=== PATIENT | female | born 1945 | race Caucasian/White ===

== ENCOUNTER 2017-10-27 15:40 | Emergency (ER) | payer OTHER ==
[2017-10-27 16:14] VITALS: BP 128/73; PULSE 66; TEMP 97.8; BMI 29.9
--- NOTE | 2017-10-27 17:22 | PDOC ---
History of Present Illness - General Chief Complaint: Cold Symptoms Stated Complaint: COLD SYMPTOMS Time Seen by Provider: 10/27/17 16:00 History Source: Patient Exam Limitations: No Limitations - History of Present Illness Initial Comments: 10/27/17 17:22 72y F hx of afib on eliquis, back pain s/p spinal stimuator presents with 1 day of nasal congestion, sore throat, mild cough productive of yellowish sputum. pt denies any chest pain, sterling, hemoptysis, leg swelling, palpitations, n/v, abd pain. no recent travel or sick contacts hasnt tried any medications at home for her symptoms Past History - Past Medical History Allergies/Adverse Reactions: Allergies Allergy/AdvReac Type Severity Reaction Status Date / Time dronedarone HCl [From Multaq] Allergy Mild Rash Verified 10/27/17 15:51 cefuroxime Allergy Verified 10/27/17 15:51 dabigatran etexilate mesylate Allergy Verified 10/27/17 15:51 [From Pradaxa] sulfamethoxazole Allergy Verified 10/27/17 15:51 [From Bactrim] trimethoprim [From Bactrim] Allergy Verified 10/27/17 15:51 Home Medications: Ambulatory Orders Aspirin 81 mg PO DAILY 02/05/13 Gabapentin [Neurontin] 300 mg PO HS 02/05/13 Metoprolol Succinate [Toprol XL -] 50 mg PO HS 02/05/13 [place]-3 Acid Ethyl Esters [Lovaza -] 1,000 mg PO DAILY 02/05/13 Ranolazine [Ranexa -] 500 mg PO BID 02/05/13 Olmesartan Medoxomil [Benicar -] 40 mg PO DAILY 09/16/13 Mv,Ca,Iron,Min/FA/Phytosterol [Centrum Cardio Tablet] 1 each PO DAILY 10/09/13 Atorvastatin Calcium 40 mg PO HS tablet 09/15/15 Trazodone HCl 75 mg PO HS tablet 09/15/15 Apixaban [Eliquis -] 5 mg PO ASDIR 07/31/16 Guaifenesin AC [Robitussin AC -] 5 ml PO TID PRN #1 bottle MDD 15ml 10/27/17 Polyethylene Glycol 3350 [Miralax (For Daily Use) -] 17 gm PO HS 10/27/17 Sennosides/Docusate Sodium [Pericolace -] 1 each PO HS 10/27/17 Anemia: No Asthma: No Cancer: No Cardiac Disorders: Yes (afib) CVA: No COPD: No CHF: No Dementia: No Diabetes: No GI Disorders: Yes (CONSTIPATION) Disorders: Yes (OVERACTIVE BLADDER) HTN: Yes Hypercholesterolemia: Yes Liver Disease: No Seizures: No Thyroid Disease: No - Surgical History Abdominal Surgery: No Appendectomy: Yes Cardiac Surgery: Yes (cardiac stent, atrial ablasion) Cholecystectomy: No Lung Surgery: No Neurologic Surgery: No Orthopedic Surgery: Yes (wrist sx - CARPAL TUNNEL) - Suicide/Smoking/Psychosocial Hx Smoking Status: No Smoking History: Never smoked Have you smoked in the past 12 months: No Number of Cigarettes Smoked Daily: 0 Hx Alcohol Use: No Drug/Substance Use Hx: No Substance Use Type: None Hx Substance Use Treatment: No Review of Systems - Review of Systems Able to Perform ROS?: Yes Comments:: 10/27/17 17:23 Constitutional - no reported Fever, Chills, HEENT: +nasal congestion, sore throat no reported vision changes, Respiratory: + cough, no reported sob, hemoptysis Cardiac: no reported chest pain, palpitations, light headedness, leg swelling Abd/GI: no reported abd pain, nausea, vomiting, blood per rectum, melena, diarrhea : no reported dysuria, frequency, discharge Musculskelatal - no reported back pain, joint swelling skin - no reported bruising, erythema, rash neurological: no reported headache, numbness, focal weakness, tingling, ataxia, hematologic: no reported anemia, easy bruising, easy bleeding *Physical Exam - Vital Signs Last Vital Signs Temp Pulse Resp BP Pulse Ox 97.8 F 66 16 128/73 100 10/27/17 15:49 10/27/17 15:49 10/27/17 15:49 10/27/17 15:49 10/27/17 15:49 - Physical Exam Comments: 10/27/17 17:26 GENERAL: The patient is awake, alert, and fully oriented, Nontoxic - in no acute distress. HEAD: Normocephalic, atraumatic. EYES: extraocular movements intact, sclera anicteric, conjunctiva clear. ENT: Normal voice, Moist mucous membranes, +nasal congestion, mild erythemadosu posterior pharynx w/o exudates NECK: Normal range of motion, supple LUNGS: Breath sounds equal, clear to auscultation bilaterally. No wheezes, no rhonchi, no rales. HEART: Regular rate and rhythm, normal S1 and S2 without murmur, rub or gallop. ABDOMEN: Soft, nontender, normoactive bowel sounds. No guarding, no rebound. . No CVA tenderness EXTREMITIES: Normal range of motion, no edema. No clubbing or cyanosis. No cords, erythema, or tenderness. NEUROLOGICAL: No facial assymetry, Normal speech, PSYCH: Normal mood, normal affect. SKIN: Warm, Dry, normal turgor, Medical Decision Making - Medical Decision Making 10/27/17 17:26 Suspect that the patient's symptoms secondary to cold/viral syndrome we'll discharge the patient with PMD fu I discussed the physical exam findings, ancillary test results and final diagnoses with the patient. I answered all of the patient's questions. The patient was satisfied with the care received and felt comfortable with the discharge plan and treatment plan. The patient will call their primary care physician within 24 hours to arrange follow-up and will return to the Emergency Department with any new, persistent or worsening symptoms. *DC/Admit/Observation/Transfer Diagnosis at time of Disposition: Upper respiratory infection Qualifiers: URI type: unspecified viral URI Qualified Code(s): J06.9 - Acute upper respiratory infection, unspecified - Discharge Dispostion Disposition: HOME Condition at time of disposition: Good Admit: No - Referrals Referrals: Aurora Nair MD [Primary Care Provider] - - Patient Instructions Printed Discharge Instructions: DI for Viral Upper Respiratory Infection -- Adult Additional Instructions: Return to the emergency department immediately with ANY new, persistent or worsening symptoms. Drink plenty of fluids to stay well-hydrated. Take Tylenol as needed for your sore throat. You may take the Robitussin as needed for your cough You MUST call and follow up with your doctor tomorrow for further evaluation of your symptoms. Results were discussed with you. Please make sure your doctor reviews the results of your emergency evaluation. - Post Discharge Activity
== END 2017-10-27 17:40 | disposition home or self-care (01) ==
LOC: FER 15:40
DX: J06.9 Acute upper respiratory infection, unspecified (principal); I48.91 Unspecified atrial fibrillation; Z79.01 Long term (current) use of anticoagulants; I10 Essential (primary) hypertension; E78.00 Pure hypercholesterolemia, unspecified; Z95.5 Presence of coronary angioplasty implant and graft
CPT/HCPCS: 99282-25

== ENCOUNTER 2018-12-12 10:11 | Emergency (ER) | payer OTHER ==
[2018-12-12 10:35] VITALS: BP 145/67; PULSE 66; TEMP 97.8; BMI 29.9
--- NOTE | 2018-12-12 10:44 | PDOC ---
History of Present Illness - General Chief Complaint: Headache Stated Complaint: headache Time Seen by Provider: 12/12/18 10:24 - History of Present Illness Initial Comments: 12/12/18 15:34 Chief complaint: Headache History of present illness: Patient described sharp lancinating pain from the base of the neck to the right parietal scalp. Pains are momentary, resolving completely, but recurrent. Began yesterday. No other visual or focal neurologic symptoms. No injury to the neck or head. Review of systems: Denies fever/chills, URI symptoms, sore throat, cough, chest pain, shortness of breath, abdominal pain, nausea, vomiting, diarrhea, visual or focal neurologic symptoms, unsteadiness of gait. Denies vaginal bleeding or discharge. Admits significant dysuria for approximately 24 hours Past medical history: Chronic neck and back pain on gabapentin. Prior A. fib, status post ablation, reportedly successful. High blood pressure. Coronary artery disease. Elevated cholesterol. Restless legs. Anxiety. Recurrent UTIs. GERD. Medications include gabapentin, ranexa, metoprolol, atorvastatin, Eliquis, Protonix, Zantac, and ropinirole Social history: Caring for severely ill with congestive heart failure and mentally handicapped son 44 years old and living at home. Admits stress, anxiety, due to the family. Denies tobacco, alcohol or drugs Family history: Reviewed and not dilatory Physical exam: Alert and oriented well-developed well-nourished no acute distress, cooperative. Afebrile, vital signs normal Head atraumatic. There is no sensory deficit to the scalp. There are no lesions or skin changes. PERRLA, fundi benign, ENT clear Neck supple without bruit mass or nodes Chest clear, full sounds bilaterally Abdomen soft nontender without mass or organomegaly Neurological C2 to 12 intact. Strength full and symmetric. No focal sensory or motor deficits. Cerebellar function intact. 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 Probable aggravation of cervical radiculopathy. Recurrent UTIs with renewed symptoms yesterday Plan: CT to rule out intracranial process. UA C&S. Further treatment depending on results Past History - Past Medical History Allergies/Adverse Reactions: Allergies Allergy/AdvReac Type Severity Reaction Status Date / Time dronedarone HCl [From Multaq] Allergy Mild Rash Verified 12/12/18 10:14 cefuroxime Allergy Verified 12/12/18 10:14 dabigatran etexilate mesylate Allergy Verified 12/12/18 10:14 [From Pradaxa] sulfamethoxazole Allergy Verified 12/12/18 10:14 [From Bactrim] trimethoprim [From Bactrim] Allergy Verified 12/12/18 10:14 Home Medications: Ambulatory Orders Gabapentin [Neurontin] 600 mg PO HS 02/05/13 Metoprolol Succinate [Toprol XL -] 50 mg PO HS 02/05/13 Ranolazine [Ranexa -] 500 mg PO BID 02/05/13 Atorvastatin Calcium 40 mg PO HS tablet 09/15/15 Trazodone HCl 50 mg PO BID tablet 09/15/15 Apixaban [Eliquis -] 5 mg PO BID 07/31/16 Sennosides/Docusate Sodium [Pericolace -] 2 each PO HS 10/27/17 Acetaminophen W/ Codeine #3 [Tylenol # 3] 1 - 2 combo PO Q4H PRN #10 tablet MDD 8 12/12/18 Alpha Lipoic Acid 200 mg PO BID 12/12/18 Bacillus Coagulans [Probiotic] 1 each PO AM 12/12/18 Nitrofurantoin Macrocrystal [Macrodantin] 50 mg PO BID #6 capsule 12/12/18 Pantoprazole Sodium 40 mg PO DAILY 12/12/18 Ranitidine [Zantac -] 150 mg PO BID 12/12/18 Ropinirole HCl [Requip -] 2 mg PO HS 12/12/18 Anemia: No Asthma: No Cancer: No Cardiac Disorders: Yes (afib) CVA: No COPD: No CHF: No Dementia: No Diabetes: No GI Disorders: Yes (CONSTIPATION) Disorders: Yes (OVERACTIVE BLADDER) HTN: Yes Hypercholesterolemia: Yes Liver Disease: No Seizures: No Thyroid Disease: No Other medical history: scoliosis - Surgical History Abdominal Surgery: No Appendectomy: Yes Cardiac Surgery: Yes (cardiac stent, atrial ablasion) Cholecystectomy: No Lung Surgery: No Neurologic Surgery: No Orthopedic Surgery: Yes (wrist sx - CARPAL TUNNEL) - Suicide/Smoking/Psychosocial Hx Smoking Status: No Smoking History: Never smoked Have you smoked in the past 12 months: No Number of Cigarettes Smoked Daily: 0 Hx Alcohol Use: No Drug/Substance Use Hx: No Substance Use Type: None Hx Substance Use Treatment: No *Physical Exam - Vital Signs Last Vital Signs Temp Pulse Resp BP Pulse Ox 97.8 F 66 18 145/67 97 12/12/18 10:14 12/12/18 10:14 12/12/18 10:14 12/12/18 10:14 12/12/18 10:14 ED Treatment Course - ADDITIONAL ORDERS Additional order review: Laboratory Results 12/12/18 10:39 Urine Color Anastacia Urine Appearance Cloudy Urine pH 5.0 Urine Protein Trace Urine Glucose (UA) Negative Urine Ketones 1+ H Urine Blood Trace-intact Urine Nitrite Negative Urine Bilirubin Negative Urine Urobilinogen 0.2 Ur Leukocyte Esterase 1+ Medical Decision Making - Medical Decision Making 12/12/18 15:49 CT is negative. Analgesics prescribed at the request of the patient. Urinalysis with evidence of UTI. Antibiotics prescribed pending culture results. Patient in no significant pain or other distress upon discharge with to follow-up as directed. *DC/Admit/Observation/Transfer Diagnosis at time of Disposition: Cervical spine arthritis with nerve pain Urinary tract infection Qualifiers: Urinary tract infection type: acute cystitis Hematuria presence: without hematuria Qualified Code(s): N30.00 - Acute cystitis without hematuria - Discharge Dispostion Disposition: HOME Condition at time of disposition: Stable Decision to Admit order: No - Prescriptions Prescriptions: Acetaminophen W/ Codeine #3 [Tylenol # 3] 1 - 2 combo PO Q4H PRN #10 tablet MDD 8 PRN Reason: Pain Nitrofurantoin Macrocrystal [Macrodantin] 50 mg PO BID #6 capsule - Referrals Referrals: Aurora Nair MD [Primary Care Provider] - 2 Days Saúl Ocasio DO [Staff Physician] - - Patient Instructions Printed Discharge Instructions: DI for Urinary Tract Infection (UTI), DI for Cervical Radiculopathy - Post Discharge Activity
[2018-12-12 11:26] LABS: EPITHELIAL CELLS 1+ /hpf
== END 2018-12-12 12:46 | disposition home or self-care (01) ==
LOC: FER 10:11
DX: N30.00 Acute cystitis without hematuria (principal); M46.82 Other specified inflammatory spondylopathies, cervical region; M79.2 Neuralgia and neuritis, unspecified
CPT/HCPCS: 70450-TC; 81003; 81015; 87086; 99282-25

== ENCOUNTER 2019-08-25 01:19 | Emergency (ER) | payer OTHER ==
[2019-08-25 01:44] VITALS: TEMP 97.7; BMI 30.9
--- NOTE | 2019-08-25 02:24 | PDOC ---
History of Present Illness - General Chief Complaint: Respiratory Stated Complaint: COUGH,WHEEZING - History of Present Illness Initial Comments: The pt is a 73F w/ a history of a-fib s/p ablation w/ recurrence (eliquis), HTN , HLD, anxiety, GERD who presents for evaluation of 4-5 days of post-nasal drip associated with a cough. She endorses a sick contact of her son and endorses receiving the flu shot this year. She has tried benadryl for her symptoms with minimal relief. She reports similar symptoms in the past that were improved with Atrovent but has not been diagnosed with COPD or asthma. She denies fevers/chills, myalgias, N/V/C/D, dysuria, hematuria, or changes in sensation. 08/25/19 02:24 Past History - Past Medical History Allergies/Adverse Reactions: Allergies Allergy/AdvReac Type Severity Reaction Status Date / Time dronedarone HCl [From Multaq] Allergy Mild Rash Verified 08/25/19 04:53 cefuroxime Allergy Verified 08/25/19 04:53 dabigatran etexilate mesylate Allergy Verified 08/25/19 04:53 [From Pradaxa] sulfamethoxazole Allergy Verified 08/25/19 04:53 [From Bactrim] trimethoprim [From Bactrim] Allergy Verified 08/25/19 04:53 Home Medications: Ambulatory Orders Gabapentin [Neurontin] 600 mg PO HS 02/05/13 Metoprolol Succinate [Toprol XL -] 50 mg PO BID 02/05/13 Ranolazine [Ranexa -] 500 mg PO BID 02/05/13 Atorvastatin Calcium 40 mg PO HS tablet 09/15/15 Trazodone HCl 50 mg PO BID tablet 09/15/15 Apixaban [Eliquis -] 5 mg PO BID 07/31/16 Pantoprazole Sodium 40 mg PO DAILY 12/12/18 Ropinirole HCl [Requip -] 2 mg PO HS 12/12/18 Acetaminophen [Tylenol] 325 mg PO DAILY 08/25/19 Aspirin [Aspirin EC] 81 mg PO DAILY 08/25/19 Gabapentin 100 mg PO DAILY 08/25/19 Guaifenesin [Robitussin] 10 ml PO Q6H PRN #1 bottle 08/25/19 Multivit-Min/FA/Lycopen/Lutein [Centrum Silver Tablet] 1 each PO DAILY 08/25/19 Mv-Min/FA/Vit K/Lycop/Lut/Zeax [Ocuvite Eye + Multi Tablet] 1 each PO DAILY 01/07 Oxybutynin Chloride [Ditropan Xl] 10 mg PO DAILY 08/25/19 Anemia: No Asthma: No Cancer: No Cardiac Disorders: Yes (afib) CVA: No COPD: No CHF: No Dementia: No Diabetes: No GI Disorders: Yes (CONSTIPATION) Disorders: Yes (OVERACTIVE BLADDER) HTN: Yes Hypercholesterolemia: Yes Liver Disease: No Seizures: No Thyroid Disease: No - Surgical History Abdominal Surgery: No Appendectomy: Yes Cardiac Surgery: Yes (cardiac stent, atrial ablasion) Cholecystectomy: No Lung Surgery: No Neurologic Surgery: No Orthopedic Surgery: Yes (wrist sx - CARPAL TUNNEL) - Psycho Social/Smoking Cessation Hx Smoking Status: No Smoking History: Never smoked Have you smoked in the past 12 months: No Number of Cigarettes Smoked Daily: 0 Hx Alcohol Use: No Drug/Substance Use Hx: No Substance Use Type: None Hx Substance Use Treatment: No Review of Systems - Review of Systems Able to Perform ROS?: Yes Comments:: GENERAL/CONSTITUTIONAL: No fever or chills. No weakness HEAD, EYES, EARS, NOSE AND THROAT: No change in vision. No change in hearing CARDIOVASCULAR: No chest pain or shortness of breath RESPIRATORY: Denies hemoptysis GASTROINTESTINAL: No nausea, vomiting, diarrhea or constipation GENITOURINARY: No dysuria, frequency, or change in urination MUSCULOSKELETAL: No joint or muscle swelling or pain. No neck or back pain SKIN: No rash NEUROLOGIC: No headache, vertigo, loss of consciousness, or change in strength/ sensation ENDOCRINE: No increased thirst. No abnormal weight change HEMATOLOGIC/LYMPHATIC: No anemia, easy bleeding, or history of blood clots ALLERGIC/IMMUNOLOGIC: No hives or skin allergy 08/25/19 02:24 Is the patient limited Bel[place]ian proficient: No *Physical Exam - Vital Signs Last Vital Signs Temp Pulse Resp BP Pulse Ox 97.7 F 71 18 153/78 95 08/25/19 01:20 08/25/19 01:20 08/25/19 01:20 08/25/19 01:20 08/25/19 01:20 - Physical Exam GENERAL: Awake, alert, and oriented to person/place/time, in no acute distress HEAD: No signs of trauma, normocephalic, atraumatic EYES: PERRLA, EOMI, sclera anicteric, conjunctiva clear ENT: Hearing grossly normal, nares patent, oropharynx clear without exudates. Moist mucosa LUNGS: No distress, speaks in full sentences, clear to auscultation bilaterally HEART: Regular rate and rhythm, normal S1 and S2, no murmurs appreciated, peripheral pulses normal and equal bilaterally ABDOMEN: Soft, nontender, normoactive bowel sounds. No guarding, no rebound EXTREMITIES: Normal inspection, Normal range of motion, no edema. No clubbing or cyanosis NEUROLOGICAL: Cranial nerves II through XII grossly intact. Normal speech, normal gait, no focal sensorimotor deficits SKIN: Warm, Dry 08/25/19 02:24 Medical Decision Making - Medical Decision Making The pt is a 73F w/ a history of a-fib s/p ablation w/ recurrence (eliquis), HTN , HLD, anxiety, GERD who presents for evaluation of 4-5 days of post-nasal drip associated with a cough. ED Course likely 2/2 bronchitis versus viral syndrome symptoms improved with duoneb and robitussin Rx for alubterol inhaler and robitussin Plan for D/C w/ PCP/Pulm f/u Discharge instructions and return precautions given Patient in agreement and verbalized understanding Dispo: Home 08/25/19 05:43 Discharge - Discharge Information Problems reviewed: Yes Clinical Impression/Diagnosis: Viral syndrome Condition: Stable Disposition: HOME - Admission No - Additional Discharge Information Prescriptions: Guaifenesin [Robitussin] 10 ml PO Q6H PRN #1 bottle PRN Reason: Cough - Follow up/Referral Referrals: Aurora Nair MD [Primary Care Provider] - Daniel Almonte MD [Staff Physician] - - Patient Discharge Instructions Patient Printed Discharge Instructions: DI for Viral Syndrome Additional Instructions: You were seen in the Emergency Department for evaluation of cough. Your symptoms are likely related to a virus and will likely self resolve within a week. Review the handout provided at discharge. Be sure to frequently wash your hands. Avoid close contact with young children, elderly, or weak immune system. Follow up with your primary care doctor within a week. A prescription was sent to your pharmacy for Robitussin, take as directed for cough An inhaler was also provided for symptomatic relief. May use the albuterol inhaler every 4-6 hours as needed for cough and breathing to clear up your airways. Return precautions include respiratory distress, difficulty breathing, cyanosis , chest pain, lethargy, confusion, dehydration, high fevers or pain. - Post Discharge Activity
[2019-08-25] MEDS ORDERED: ALBUTEROL SO4 2.5/IPRATROPIUM 0.5 INH SOL 3 ML VIAL.NEB. NEB ONE ×2 (02:38→02:45)
[2019-08-25] MEDS ORDERED: guaiFENesin 200 MG/10 ML 10 ML UNIT-DOSE CUPS PO ONE (02:38)
[2019-08-25] MEDS ORDERED: guaiFENesin 200 MG/10 ML 10 ML UNIT-DOSE CUPS ONE (02:45)
[2019-08-25 05:14] VITALS: PULSE 68
[2019-08-25] MEDS ORDERED: ALBUTEROL SO4 8 GM HFA INHALER IH PRN (05:41)
[2019-08-25 06:46] VITALS: BP 152/78
--- NOTE | 2019-08-25 17:00 | EKG ---
Test Reason : Blood Pressure : / mmHG Vent. Rate : 068 BPM Atrial Rate : 068 BPM P-R Int : 176 ms QRS Dur : 084 ms QT Int : 418 ms P-R-T Axes : 045 042 042 degrees QTc Int : 444 ms NORMAL SINUS RHYTHM NORMAL ECG WHEN COMPARED WITH ECG OF 04-JUN-2012 08:31, T WAVE VARIATION Confirmed by ABELARDO HUERTAS MD ([id number]) on 08/25/2019 5:00:22 PM Referred By: Confirmed By:ABELARDO HUERTAS MD
== END 2019-08-25 06:10 | disposition home or self-care (01) ==
LOC: JER 01:19
PROC: 3E0F7GC Introduction of Other Therapeutic Substance into Respiratory Tract, Via Natural or Artificial Opening (ICD-10-PCS; principal; 2019-08-25)
DX: B34.9 Viral infection, unspecified (principal); I25.10 Atherosclerotic heart disease of native coronary artery without angina pectoris; I10 Essential (primary) hypertension; Z95.5 Presence of coronary angioplasty implant and graft; I48.91 Unspecified atrial fibrillation; Z79.01 Long term (current) use of anticoagulants; E78.5 Hyperlipidemia, unspecified; K21.9 Gastro-esophageal reflux disease without esophagitis; F41.9 Anxiety disorder, unspecified; Z79.82 Long term (current) use of aspirin; Z88.2 Allergy status to sulfonamides; Z88.8 Allergy status to other drugs, medicaments and biological substances
CPT/HCPCS: 71046-TC-FY; 93005; 93010; 94640; 99283-25

== ENCOUNTER 2020-04-30 07:18 | Inpatient (IN) | payer OTHER ==
--- NOTE | 2020-04-30 07:35 | PDOC ---
History of Present Illness - General Chief Complaint: Shortness of Breath Stated Complaint: SHORT OF BREATH Time Seen by Provider: 04/30/20 07:30 History Source: Patient Exam Limitations: No Limitations - History of Present Illness Initial Comments: 04/30/20 07:30 74 yo F h/o htn afib, cad ( stent) on eliquis and asa here with c/o exertional sob x 4 days. worse wtih any small walking. pt does have mild leg swelling. no h/o fever or cough. explains irregular feeling in her chest , palpitations, no pain. has appointment with dr Mccallum her emergency department coordinator in 5 days , but here be cause sxs were getting worse. does not smoke, h/o tobacco use . no other complaints Past History - Medical History Allergies/Adverse Reactions: Allergies Allergy/AdvReac Type Severity Reaction Status Date / Time dronedarone HCl [From Multaq] Allergy Mild Rash Verified 08/25/19 04:53 cefuroxime Allergy Verified 08/25/19 04:53 dabigatran etexilate mesylate Allergy Verified 04/30/20 07:22 [From Pradaxa] sulfamethoxazole Allergy Verified 08/25/19 04:53 [From Bactrim] trimethoprim [From Bactrim] Allergy Verified 08/25/19 04:53 Home Medications: Ambulatory Orders Acetaminophen [Tylenol -] 1,000 mg PO AM 04/30/20 Apixaban [Eliquis -] 5 mg PO BID 04/30/20 Aspirin [ASA -] 1 tab PO DAILY 04/30/20 Azilsartan Medoxomil [Edarbi] 1 tab PO AM 04/30/20 Cranberry 4,200 mg PO AM 04/30/20 Difluprednate [Durezol] 5 ml OS BID 04/30/20 Ezetimibe/Simvastatin [Ezetimibe-Simvastatin 10-80 mg] 1 each PO DAILY 04/30/20 Gabapentin 600 mg PO HS 04/30/20 Metoprolol Succinate 50 mg PO BID 04/30/20 Multivit-Min/FA/Lycopen/Lutein [Centrum Silver Tablet] 1 each PO DAILY 04/30/20 [place]-3 Acid Ethyl Esters [Lovaza -] 2,000 mg PO DAILY 04/30/20 Oxybutynin Chloride [Ditropan Xl] 10 mg PO DAILY 04/30/20 Ranolazine [Ranexa] 500 mg PO BID 04/30/20 Ropinirole HCl [Ropinirole ER] 2 mg PO HS 04/30/20 Sennosides/Docusate Sodium [Pericolace -] 2 each PO HS 04/30/20 Vit C/Vit E AC/Lut/Copper/Zinc [Preservision Softgel] 1 each PO 04/30/20 Vit C/Vit E AC/Lut/Copper/Zinc [Preservision Softgel] 1 each PO DAILY 04/30/20 traZODone HCL [Trazodone HCl] 50 mg PO HS 04/30/20 Anemia: No Asthma: No Cancer: No Cardiac Disorders: Yes (afib) CVA: No COPD: No CHF: No Dementia: No Diabetes: No GI Disorders: Yes (CONSTIPATION) Disorders: Yes (OVERACTIVE BLADDER) HTN: Yes Hypercholesterolemia: Yes Liver Disease: No Seizures: No Thyroid Disease: No - Surgical History Abdominal Surgery: No Appendectomy: Yes Cardiac Surgery: Yes (cardiac stent, atrial ablasion) Cholecystectomy: No Lung Surgery: No Neurologic Surgery: No Orthopedic Surgery: Yes (wrist sx - CARPAL TUNNEL) - Psycho-Social/Smoking History Smoking Status: No Smoking History: Never smoked Have you smoked in the past 12 months: No Number of Cigarettes Smoked Daily: 0 Review of Systems - Review of Systems Constitutional: No: Chills, Fever HEENTM: No: Eye Pain, Blurred Vision Respiratory: Yes: Shortness of Breath, SOB with Exertion. No: Cough, SOB at Rest Cardiac (ROS): Yes: Palpitations. No: Chest Pain ABD/GI: No: Diarrhea, Nausea, Vomiting : No: Burning, Dysuria, Discharge Musculoskeletal: No: Back Pain, Joint Pain Integumentary: No: Bruising Neurological: No: Headache, Paresthesia All Other Systems: Reviewed and Negative *Physical Exam - Physical Exam 04/30/20 07:34 awake alert lung clear bilat heart rrr no mrg abd soft nt nd ext wwp. mild pitting edema. 2+ dp/ pt pulses bilat. alert oriented x 3. ED Treatment Course - LABORATORY CBC & Chemistry Diagram: 04/30/20 08:26 04/30/20 08:47 Medical Decision Making - Medical Decision Making 04/30/20 07:34 74 yo F h/o htn afib cad here wiht sob, palpitations and chest discomfort intermittently. differential rvr from afib, chf, infection such as pna, angina. pln cxr ekg trop bnp labs. Discharge - Discharge Information Problems reviewed: Yes Clinical Impression/Diagnosis: Atrial fibrillation, Shortness of breath, Chest pain Condition: Stable - Admission Yes - Follow up/Referral - Patient Discharge Instructions - Post Discharge Activity
[2020-04-30 08:30] LABS: BASO % 0.5 % (0-2.0); EOS % 1.7 % (0-4.5); HEMATOCRIT 39.2 % (32.4-45.2); HEMOGLOBIN 12.7 GM/dl (10.7-15.3); LYMPH % 24.8 % (8-40); MCH 28.7 pg (25.7-33.7); MCHC 32.4 g/dl (32.0-36.0); MEAN CELL VOLUME 88.6 fl (80-96); MEAN PLT VOLUME 7.8 fl (7.5-11.1); MONO % 9.6 % (3.8-10.2); NEUT % 63.4 % (42.8-82.8); PLATELET COUNT 202 K/MM3 (134-434); RBC 4.42 M/mm3 (3.60-5.2); RDW 14.1 % (11.6-15.6); WHITE BLOOD COUNT 7.3 K/mm3 (4.0-10.8)
[2020-04-30 08:49] LABS: INR 1.53 (0.82-1.09)
[2020-04-30 08:51] LABS: ALBUMIN 3.6 g/dl (3.4-5.0); BILIRUBIN,TOTAL 0.6 mg/dl (0.2-1); CALCIUM 8.9 mg/dl (8.5-10); CREATININE 0.8 mg/dl (0.55-1.3); POTASSIUM 3.9 mmol/L (3.5-5.1)
[2020-04-30 09:38] LABS: N-TERMINAL BNP 2028.8 pg/ml (5-450)
[2020-04-30] MEDS ORDERED: ATORVASTATIN CA 40 MG TABLET (FP) PO STA (09:44)
[2020-04-30] MEDS ORDERED: PATIENT'S OWN MEDICATION (NON-FORMULARY) (Difluprednate [Durezol] 5 ML) OS SCH (10:00)
[2020-04-30 10:26] LABS: EPITHELIAL CELLS MODERATE /hpf
--- NOTE | 2020-04-30 11:06 | HP ---
Admitting History and Physical - Primary Care Physician PCP: Rosanna Overton - Admission Chief Complaint: Dyspnea on exertion, History of Present Illness: 74 year old F with h/o coronary artery disease status post percutaneous coronary intervention stenting (ARLEN LAD patent on coronary angiography April 18, 2011) negative pharmacologic study for myocardial ischemia Aug 2019, angina pectoris, diastolic left ventricular dysfunction with class 0 [place] [employer] classification left ventricular failure (LVEF between 65-70%), paroxysmal atrial fibrillation status post cryo balloon catheter ablation June 20, 2012 on chronic anticoagulation therapy with DOACsEliquis [id number] score of 4HASBLED score of 2 recurrent asymptomatic arrhythmia August 01, 2019, HTN with labile blood pressure, hypercholesterolemia, hypertriglyceridemia presents to ED for evaluation of GON[place]VES and chest discomfort x 4- 5 dys. Patient reports increased overall stress due to 's ill health. She has poor sleep at nights and always feels fatigued. Over the last month she has noted a dry cough worse at night, mid-sternal chest discomfort, palpitations and decreased exercise tolerance. She must now limited by dyspnea to 1 block and has trouble completing her tasks around the house. Patient currently undergoing GI evaluation for chronic cough (had planned GI series today 04/30 and C-scope next week). She denies associated symptoms of neck/back/arm pain, no jaw pain, dizziness, diaphoresis, or syncope. No recent sick contacts or travel. Last COVID screen Mar 2020 prior to EGD was negative. On the afternoon of 04/29 her symptoms were "worse than usual doing her normal everyday activities", therefore, she decided to proceed to ED for evaluation. In ED: EKG Afib 99bpm Tele: Afib with rates up to 120s CT chest with mild chronic interstitial lung disease Labs WNL Decision made to admit patient for continued workup. History Source: Patient Limitations to Obtaining History: No Limitations - Past Medical History Cardiovascular: Yes: AFIB, CAD, HTN, Hyperlipdemia Gastrointestinal: Yes: GERD Reproductive: Yes: Postmenopausal ...: No ...: 4 ...Para: 2 Psych: Yes: Anxiety, Depression Musculoskeletal: Yes: Chronic low back pain ENT: Yes: Sinusitis Additional Past Medical History: restless leg syndrome Overactive bladder H pylori gastritis, degenerative lumbosacral disc disease with chronic low back pain and radiculopathy (post spinal cord stimulator implantation), anxiety disorder and chronic insomnia - Past Surgical History Additional Past Surgical History: percutaneous angioplasty A-fib ablation right carpal tunnel release sinus surgery D & C x 2 Appendectomy age 40 Vaginoplasty bilateral cataract extraction Left eyelid skin cancer resection spinal cord stimulator implantation - Advance Directives Advance Directives: Yes: Living Will - Smoking History Smoking history: Never smoked Have you smoked in the past 12 months: No Aproximately how many cigarettes per day: 0 - Alcohol/Substance Use Hx Alcohol Use: No History of Substance Use: reports: None - Social History Usual Living Arrangement: Yes: With Spouse, With Child Do you think of yourself as: Straight/Heterosexual ADL: Independent Occupation: Retired JOB [employer]TER [employer] History of Recent Travel: No Other Social History: Synagogue: Spiritism. Exercise: none Home Medications - Allergies Allergies/Adverse Reactions: Allergies Allergy/AdvReac Type Severity Reaction Status Date / Time dronedarone HCl [From Multaq] Allergy Mild Rash Verified 08/25/19 04:53 cefuroxime Allergy Verified 08/25/19 04:53 dabigatran etexilate mesylate Allergy Verified 04/30/20 07:22 [From Pradaxa] sulfamethoxazole Allergy Verified 08/25/19 04:53 [From Bactrim] trimethoprim [From Bactrim] Allergy Verified 08/25/19 04:53 - Home Medications Home Medications: Ambulatory Orders Acetaminophen [Tylenol -] 1,000 mg PO AM 04/30/20 Apixaban [Eliquis -] 5 mg PO BID 04/30/20 Aspirin [ASA -] 1 tab PO DAILY 04/30/20 Azilsartan Medoxomil [Edarbi] 1 tab PO AM 04/30/20 Cranberry 4,200 mg PO AM 04/30/20 Difluprednate [Durezol] 5 ml OS BID 04/30/20 Ezetimibe/Simvastatin [Ezetimibe-Simvastatin 10-80 mg] 1 each PO DAILY 04/30/20 Gabapentin 600 mg PO HS 04/30/20 Metoprolol Succinate 50 mg PO BID 04/30/20 Multivit-Min/FA/Lycopen/Lutein [Centrum Silver Tablet] 1 each PO DAILY 04/30/20 [place]-3 Acid Ethyl Esters [Lovaza -] 2,000 mg PO DAILY 04/30/20 Oxybutynin Chloride [Ditropan Xl] 10 mg PO DAILY 04/30/20 Ranolazine [Ranexa] 500 mg PO BID 04/30/20 Ropinirole HCl [Ropinirole ER] 2 mg PO HS 04/30/20 Sennosides/Docusate Sodium [Pericolace -] 2 each PO HS 04/30/20 Vit C/Vit E AC/Lut/Copper/Zinc [Preservision Softgel] 1 each PO 04/30/20 Vit C/Vit E AC/Lut/Copper/Zinc [Preservision Softgel] 1 each PO DAILY 04/30/20 traZODone HCL [Trazodone HCl] 50 mg PO HS 04/30/20 Family Medical History Family History: As Documented Other Family History: Mother (78) CAD, DMII. Father (68) RHD, during aortic repair surgery. daughter alive (49) h/o breast cancer. Son alive (45) OCD. Sister alive (71) HLD, DMII, bipolar. Sister alive (65) ? Sister alive (66) Well. Brother alive (67) well. Brother alive (76) osteoarthr itis Review of Systems Unable to obtain ROS, reason: see below - Review of Systems Constitutional: reports: Weakness Eyes: reports: No Symptoms HENT: reports: No Symptoms Neck: reports: No Symptoms Cardiovascular: reports: Chest Pain, Palpitations, Shortness of Breath Respiratory: reports: Cough, SOB on Exertion Gastrointestinal: reports: No Symptoms Genitourinary: reports: No Symptoms Breasts: reports: No Symptoms Reported Musculoskeletal: reports: Back Pain Integumentary: reports: No Symptoms Neurological: reports: No Symptoms Endocrine: reports: No Symptoms Hematology/Lymphatic: reports: No Symptoms Psychiatric: reports: Altered Sleep Pattern, Anxiety, Depression Physical Examination Vital Signs: Vital Signs Temperature 98.3 F 04/30/20 07:22 Pulse Rate 108 H 04/30/20 10:15 Respiratory Rate 18 04/30/20 10:15 Blood Pressure 137/89 04/30/20 07:22 O2 Sat by Pulse Oximetry (%) 100 04/30/20 10:15 Constitutional: Yes: Well Nourished, No Distress, Calm Eyes: Yes: Conjunctiva Clear, PERRL HENT: Yes: Atraumatic, Normocephalic Neck: Yes: Supple, Trachea Midline Cardiovascular: Yes: Tachycardia, Pulse Irregular Respiratory: Yes: Regular, CTA Bilaterally Gastrointestinal: Yes: Normal Bowel Sounds, Soft, Abdomen, Obese ...Rectal Exam: Yes: Deferred Musculoskeletal: Yes: Back Pain Extremities: Yes: WNL Edema: No Integumentary: Yes: WNL Neurological: Yes: Alert, Oriented ...Motor Strength: WNL Psychiatric: Yes: Alert, Oriented Labs: CBC, BMP 04/30/20 08:26 04/30/20 08:47 Imaging - Results Chest X-ray: Report Reviewed (CXR 04/30/2020 2 views of the chest to been submitt ed. There is a weak inspiration with spinal stimulator wiring, prominent heart, sclerotic knob and prominent [place]. There are some atelectatic changes at the right base and left base. There is abdominal distention but no sign of infiltrate or failure. Pneumothorax is not seen. The soft tissues are intact. There is a scoliosis with some arthritic changes. Correlation recommended. Impression: Weak inspiration. Spinal stimulator wiring. Minimal basilar atelectatic changes.) Cat Scan: Report Reviewed (CT chest 04/30/20 (without contrast) Examination of the mediastinum demonstrates no evidence of mediastinal masses, fluid collections or lymphadenopathy. The heart is not enlarged. There is a trace amount of pericardial fluid. There is also extensive coronary artery calc ification. The lung rose are free of pulmonary masses, areas of acute consolidation or pleural effusions. There are slightly increased interstitial markings diffusely indicative of a mild degree of chronic lung disease. Minimal platelike atelectasis is also noted at the right lung base. Limited evaluation of the upper abdomen demonstrates no acute abnormalities. There is no evidence of acute bony pathology. There is a neuro stimulating device within the thoracic spinal canal. IMPRESSION: Mild chronic interstitial lung disease with no evidence of acute pathology within the chest. Please see above discussion. Reported By: Erick Cardenas MD 04/30/20 0958) Other: Other (Echocardiography performed September 29, 2017 revealed normal left ventricular systolic function with estimated left ventricular ejection fraction between 6570%, mild degree of concentric left ventricular hypertrophy, Doppler evidence of left ventricular diastolic dysfunctionimpaired left ventricular relaxation, normal right ventricular size and systolic function, aortic valve sclerosis with no evidence of leaflet restriction, mild mitral valve regurgitation, mild to moderate tricuspid valve regurgitation with calculated RVSP of 31 mmHg. Pharmacologic Lexiscan myocardial perfusion imaging study performed August 01, 2017 revealed no evidence of myocardial ischemia with normal left ventricular contraction pattern on LV gated analysis with calculated left ventricular ejection fraction of 70%. Echocardiography performed December 11, 2015 revealed overall preserved left ventricular systolic function, mitral annular calcification, aortic valve leaflet sclerosis, left atrial dilatation measuring 4.0 cm, mild mitral and tricuspid valve regurgitation with calculated RVSP of 40 mmHg (mild degree of pulmonary hypertension). Pharmacologic Dipyridamole myocardial perfusion imaging study performed November 25, 2015 revealed small size apical wall defect compatible with apical thinningattenuation with normal left ventricular contraction pattern on LV gated analysis with calculated left ventricular ejection fraction of 77%. Carotid Doppler study performed May 29, 2014 revealed mild atherosclerotic plaque bilaterally with no evidence of hemodynamically significant stenosis.) Problem List - Problems (1) CAD in [place] artery Assessment/Plan: continue statin and aspirin ranexa BID cardiac diet Code(s): I25.10 - ATHSCL HEART DISEASE OF [place] CORONARY ARTERY W/O ANG PCTRS (2) Atrial fibrillation Assessment/Plan: continuous telemetry continue eliquis BID cardiology consulted- recs appreciated toprol XL BID changed to sotalol as per Cardiology Chest discomfort and dyspnea may be due to high Afib burden with poor rate control, Code(s): I48.91 - UNSPECIFIED ATRIAL FIBRILLATION Qualifiers: Atrial fibrillation type: longstanding persistent Qualified Code(s): I48.11 - Longstanding persistent atrial fibrillation (3) Chest pain Assessment/Plan: serial cardiac enzymes daily EKGs Code(s): R07.9 - CHEST PAIN, UNSPECIFIED Qualifiers: Ischemic chest pain type: stable angina pectoris (4) Shortness of breath Assessment/Plan: PRN oxygen for moderate to severe dyspnea incentive spirometry Code(s): R06.02 - SHORTNESS OF BREATH (5) Degenerative lumbar spinal stenosis Assessment/Plan: PRN APAP Neurontin 600mg qhs Ambulate as tolerated OOB to chair Code(s): M48.061 - SPINAL STENOSIS, LUMBAR REGION WITHOUT NEUROGENIC NIKOLAI (6) Constipation Assessment/Plan: pericolace daily Code(s): K59.00 - CONSTIPATION, UNSPECIFIED (7) Overactive bladder Assessment/Plan: vesicare 5mg daily Code(s): N32.81 - OVERACTIVE BLADDER (8) Depression Assessment/Plan: trazodone 50mg qhs Code(s): F32.9 - MAJOR DEPRESSIVE DISORDER, SINGLE EPISODE, UNSPECIFIED (9) Prophylactic measure Assessment/Plan: CORBY hernandez SCDs Fall precautions daily MVIs Code(s): Z29.9 - ENCOUNTER FOR PROPHYLACTIC MEASURES, UNSPECIFIED (10) Hyperlipidemia Assessment/Plan: continue Zetia 10mg qhs change simvastatin to lipitor while inpt, due to non-formulary medication Code(s): E78.5 - HYPERLIPIDEMIA, UNSPECIFIED (11) Hypertension Assessment/Plan: change Azilsartan to losartan while inpt, due to non-formulary status Code(s): I10 - ESSENTIAL (PRIMARY) HYPERTENSION Assessment/Plan Code status:DNI Pt may be discharged in the morning, after sotalol successfully initiated with close QTc monitoring. Maintain isolation precautions while COVID screen pending. Visit type - Medication Review Med list reviewed for High Risk Meds patients 65 and older: Yes - Emergency Visit Emergency Visit: Yes ED Registration Date: 04/30/20 Care time: The patient presented to the Emergency Department on the above date and was hospitalized for further evaluation of their emergent condition. - New Patient This patient is new to me today: Yes Date on this admission: 04/30/20 - Critical Care Critical Care patient: No
--- NOTE | 2020-04-30 11:34 | CON.CARD ---
Consult Consult Specialty:: Cardiology Referred by:: Dr. Overton Reason for Consultation:: History of coronary artery disease post percutaneous intervention stenting angina pectoris, diastolic left ventricular dysfunction, recurrent paroxysmal atrial fibrillation post cryo- balloon catheter ablation on chronic anticoagulation therapy/DOAC's- Eliquis, hypertensive cardiovascular disease/labile blood pressure and hypercholesterolemia/hypertriglyceridemia. 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 history of [place] artery disease status post percutaneous coronary intervention stenting (ARLEN- LAD patent on coronary angiography April 18, 2011) negative pharmacologic Lexiscan myocardial perfusion imaging study for myocardial ischemia/August 01, 2017/September 04, 2019angina pectoris, diastolic left ventricular dysfunction with class 0 [place] [employer] classification left ventricular failure (LVEF between 55-60% on echocardiography performedJan2019), paroxysmal atrial fibrillation status post cryo -balloon catheter ablation/June 20, 2012 on chronic anticoagulation therapy with DOACs/Eliquis [id number] score of 4/HAS-BLED score of 2 recurrent asymptomatic arrhythmia August 01, 2019- post spontaneous conversion/EKG dated August 08, 2019, mitral valve regurgitation mild in severity of no clinical significance on echocardiography performed December 11, 2015/September 29, 2017/August 22, 2019, tricuspid valve regurgitation mild to moderate in severity with RVSP of 40 mmHg on echocardiography performed December 11, 2015/RVSP of 31 mmHg on echocardiography performed September 29, 2017/RVSP of 30 mmHg on echocardiography performed August 22, 2019, hypertensive cardiovascular disease/labile blood pressure, hypercholesterolemia/hypertriglyceridemia, carotid atherosclerosis mild in severity on carotid Doppler study performed May 29, 2014, gastroesophageal reflux disease/tracheolaryngeal reflux disease, H- pylori gastritis, degenerative lumbosacral disc disease with chronic low back pain and radiculopathy (post spinal cord stimulator implantation), restless leg syndrome, anxiety disorder and chronic insomnia who was last evaluated in the officeJun2019. Since the above evaluation, patient presents to [facility] with exertional sob, palpitations, chest tightness without orthopnea or paroxysmal nocturnal dyspnea, near or true syncope. Patient continues to reportpersistence ofintermittent bilateral lower extremity edema that worsens in the latter part of the day, severity of which has not increased. Patient continues to report persistence of low back discomfort with radiation to the lower extremities limiting her ambulation/exercise ability- above is related to her degenerative lumbosacral disc disease with lumbar radiculopathy. - History Source History Provided By: Patient Limitations to Obtaining History: No Limitations - Past Medical History Cardio/Vascular: Yes: AFIB, CAD, HTN - Alcohol/Substance Use Hx Alcohol Use: No - Smoking History Smoking history: Never smoked Have you smoked in the past 12 months: No Aproximately how many cigarettes per day: 0 Home Medications - Allergies Allergies/Adverse Reactions: Allergies Allergy/AdvReac Type Severity Reaction Status Date / Time dronedarone HCl [From Multaq] Allergy Mild Rash Verified 08/25/19 04:53 cefuroxime Allergy Verified 08/25/19 04:53 dabigatran etexilate mesylate Allergy Verified 04/30/20 07:22 [From Pradaxa] sulfamethoxazole Allergy Verified 08/25/19 04:53 [From Bactrim] trimethoprim [From Bactrim] Allergy Verified 08/25/19 04:53 - Home Medications Home Medications: Ambulatory Orders Acetaminophen [Tylenol -] 1,000 mg PO AM 04/30/20 Apixaban [Eliquis -] 5 mg PO BID 04/30/20 Aspirin [ASA -] 1 tab PO DAILY 04/30/20 Azilsartan Medoxomil [Edarbi] 1 tab PO AM 04/30/20 Cranberry 4,200 mg PO AM 04/30/20 Difluprednate [Durezol] 5 ml OS BID 04/30/20 Ezetimibe/Simvastatin [Ezetimibe-Simvastatin 10-80 mg] 1 each PO DAILY 04/30/20 Gabapentin 600 mg PO HS 04/30/20 Metoprolol Succinate 50 mg PO BID 04/30/20 Multivit-Min/FA/Lycopen/Lutein [Centrum Silver Tablet] 1 each PO DAILY 04/30/20 [place]-3 Acid Ethyl Esters [Lovaza -] 2,000 mg PO DAILY 04/30/20 Oxybutynin Chloride [Ditropan Xl] 10 mg PO DAILY 04/30/20 Ranolazine [Ranexa] 500 mg PO BID 04/30/20 Ropinirole HCl [Ropinirole ER] 2 mg PO HS 04/30/20 Sennosides/Docusate Sodium [Pericolace -] 2 each PO HS 04/30/20 Vit C/Vit E AC/Lut/Copper/Zinc [Preservision Softgel] 1 each PO 04/30/20 Vit C/Vit E AC/Lut/Copper/Zinc [Preservision Softgel] 1 each PO DAILY 04/30/20 traZODone HCL [Trazodone HCl] 50 mg PO HS 04/30/20 Review of Systems - Review of Systems Cardiovascular: reports: Palpitations, Shortness of Breath Respiratory: reports: Exercise Intolerance, SOB on Exertion Musculoskeletal: reports: Back Pain Vital Signs: Vital Signs Temperature 98.3 F 04/30/20 07:22 Pulse Rate 108 H 04/30/20 10:15 Respiratory Rate 18 04/30/20 10:15 Blood Pressure 137/89 04/30/20 07:22 O2 Sat by Pulse Oximetry (%) 100 04/30/20 10:15 Constitutional: Yes: No Distress, Calm Neck: Yes: Supple Respiratory: Yes: Regular, CTA Bilaterally Gastrointestinal: Yes: Normal Bowel Sounds, Soft Cardiovascular: Yes: Tachycardia, Pulse Irregular JVD: No Carotid Bruit: No Heart Sounds: Yes: S1, S2 Murmur: Yes: Systolic Murmur, Grade 1 Edema: No - Other Data Labs, Other Data: CBC, BMP 04/30/20 08:26 04/30/20 08:47 INR, PTT INR 1.53 (0.82-1.09) H 04/30/20 07:51 Troponin, BNP 04/30/20 04/30/20 07:51 08:47 Troponin I < 0.03 B-Natriuretic Peptide 8.8 H Troponin, BNP 04/30/20 04/30/20 07:51 08:47 Troponin I < 0.03 B-Natriuretic Peptide 2028.8 H Afib @ 99 c/w previous 02/06/2020 back in afib Echo: Report Reviewed Ejection Fraction %: LVEF > or = 40 % Imaging - Results Chest X-ray: Report Reviewed Cat Scan: Report Reviewed Problem List - Problems (1) Atrial fibrillation Code(s): I48.91 - UNSPECIFIED ATRIAL FIBRILLATION Qualifiers: Atrial fibrillation type: paroxysmal Qualified Code(s): I48.0 - Paroxysmal atrial fibrillation (2) CAD in [place] artery Code(s): I25.10 - ATHSCL HEART DISEASE OF [place] CORONARY ARTERY W/O ANG PCTRS (3) Chest pain Code(s): R07.9 - CHEST PAIN, UNSPECIFIED Qualifiers: Ischemic chest pain type: stable angina pectoris (4) Hyperlipidemia Code(s): E78.5 - HYPERLIPIDEMIA, UNSPECIFIED Qualifiers: Hyperlipidemia type: mixed hyperlipidemia Qualified Code(s): E78.2 - Mixed hyperlipidemia (5) Hypertension Code(s): I10 - ESSENTIAL (PRIMARY) HYPERTENSION Qualifiers: Hypertension type: essential hypertension Qualified Code(s): I10 - Essential (primary) hypertension (6) Shortness of breath Code(s): R06.02 - SHORTNESS OF BREATH Assessment/Plan 04/30/[address]: Mild chronic interstitial lung disease Echocardiography performed August 22, 2019 revealed normal left ventricular size and systolic function with estimated LVEF between 55-60%, mild left atrial dilatation, normal right ventricle size and systolic function, mild mitral valve regurgitation, mild to moderate tricuspid valve regurgitation with calculated RVSP of 30 mmHg. Pharmacologic Lexiscan myocardial perfusion imaging study performed September 04, 2019 revealed small size anteroapical wall defect compatible with soft tissue attenuation/normal variant with normal left ventricular contraction pattern on LV gated analysis with calculated left ventricular ejection fraction of 66% at rest and 65% post Lexiscan infusion. 08/01/2017 Lexiscan Myoview: No ischemia, normal LVEF Assessment: 1. Coronary artery disease of [place] artery of [place] heart with stable angina pectoris 2. Status post insertion of drug eluting coronary artery stent 3. Angina pectoris 4. Dyspnea on exertion 5. Diastolic dysfunction, left ventricle 6. Paroxysmal atrial fibrillation w 7. Hypertensive heart disease without heart failure 8. Labile blood pressure 9. Hypercholesterolemia 10. Hypertriglyceridemia 11. Exogenous obesity 1.Persistent exertional dyspnea in a patient with known history of coronary artery disease status post percutaneous coronary intervention stenting negative pharmacologic Lexiscan myocardial perfusion imaging study for myocardial ischemia/August 01, 2017- September 04, 2019angina pectoris. 2. Diastolic left ventricular dysfunction with class 0 [place] [employer] classification left ventricular failure. 3. Paroxysmal atrial fibrillation post cryo- balloon catheter ablation on chronic anticoagulation therapy with DOAC's/Eliquis [id number] score of 4/HAS- BLED score of 2(with recurrent symptomatic arrhythmia) 4.Mitral valve regurgitation mild in severity (of no clinical significance). 5. Tricuspid valve regurgitation mild to moderate in severity with RVSP of 40 mmHg on echocardiography performed December 11, 2015/RVSP of 31 mmHg on echocardiography performed September 29, 2017/RVSP of 30 mmHg on echocardiography performed August 22, 2019. 6. Hypertensive cardiovascular disease, labile blood pressure near/at goal- reported adequate home blood pressure measurements. 7. Hypercholesterolemia/hypertriglyceridemia. 8. Carotid atherosclerosis mild in severity, asymptomatic. 9. History of gastroesophageal reflux disease/tracheolaryngeal reflux disease. 10. History of degenerative lumbosacral disc disease with chronic low back pain syndrome and radiculopathy post spinal cord stimulator implantation. 11. History of restless leg syndrome. 12. History of anxiety disorder. 13. History of chronic insomnia. 14. Exogenous obesity. Plan: 1. Change Toprol XL to sotalol 80 bid with check QTC x 2 days, Eliquis 5 bid given elevated [id number] score of 4, Erdarbi 40 qd or equivalent, Zetia 10 qd, Zocor 80 qhs, Lovaza 2 bid, Ranexa 500 bid 2. Consider DCCV if afib persists and rate-control suboptimal despite antiarrhythmic therapy 3. F/u with Dr. Scruggs and [facility] service as outpatient 4. Consider sleep study r/o OSAS 5. Thank you for consultative opportunity
[2020-04-30 11:54] VITALS: BMI 32.5
--- NOTE | 2020-04-30 12:39 | EKG ---
Test Reason : Blood Pressure : / mmHG Vent. Rate : 099 BPM Atrial Rate : 375 BPM P-R Int : 000 ms QRS Dur : 088 ms QT Int : 342 ms P-R-T Axes : 000 045 020 degrees QTc Int : 438 ms ATRIAL FIBRILLATION ABNORMAL ECG WHEN COMPARED WITH ECG OF 25-AUG-2019 01:37, ATRIAL FIBRILLATION HAS REPLACED SINUS RHYTHM Confirmed by BUNNY MONREAL MD ([id number]) on 04/30/2020 12:39:37 PM Referred By: EBONY DOWD Confirmed By:BUNNY MONREAL MD
[2020-04-30] MEDS: OMEGA-3 ACID ETHYL ESTERS (FATTY-ACIDS) 1 GM CAPSULE (FP) PO SCH (12:58)
[2020-04-30] MEDS: MULTIVITAMINS THER W-MINERALS COMBO TABLET (FP) PO SCH (13:01)
[2020-04-30] MEDS: RANOLAZINE E.R. 500 MG TABLET (FP) PO SCH ×2 (13:02→21:26)
[2020-04-30] MEDS: APIXABAN 5 MG TABLET PO SCH ×2 (13:02→21:26)
[2020-04-30] MEDS: ASPIRIN 81 MG CHEWABLE TABLETS PO SCH (13:02)
[2020-04-30] MEDS: SOLIFENACIN SUCCINATE 5 MG TAB PO SCH (13:03)
[2020-04-30] MEDS ORDERED: POTASSIUM CHLORIDE TABS 20 MEQ TABLET.ER (FP) PO ONE (13:32)
[2020-04-30] MEDS ORDERED: NITROGLYCERIN SUBLINGUAL 1/150 0.4 MG TAB SL PRN (13:33)
[2020-04-30] MEDS: LOSARTAN POTASSIUM 25 MG TABLET PO SCH (17:55)
[2020-04-30] MEDS ORDERED: LOSARTAN POTASSIUM 25 MG TABLET PO ONE (18:00)
[2020-04-30] MEDS ORDERED: PT OWN MED DRAWER 7, Y5N ONE (21:20)
[2020-04-30] MEDS: SOTALOL HCL 80 MG TABLET (FP) PO SCH (21:22)
[2020-04-30] MEDS: traZODone HCL 50 MG TABLET (FP) PO SCH (21:26)
[2020-04-30] MEDS: EZETIMIBE 10 MG TABLET (FP) PO SCH (21:26)
[2020-04-30] MEDS: GABAPENTIN 300 MG CAPSULE PO SCH (21:26)
[2020-04-30] MEDS: ACETAMINOPHEN 325 MG TABLET (FP) PO PRN (21:27)
[2020-04-30] MEDS: SENNOSIDES/DOCUSATE COMBO (SENNA PLUS) TABLET (UD) PO SCH (21:27)
[2020-04-30] MEDS: ATORVASTATIN CA 40 MG TABLET (FP) PO SCH (21:27)
[2020-05-01] MEDS ORDERED: AZILSARTAN MEDOXOMIL PO SCH (07:00)
[2020-05-01] MEDS ORDERED: ACETAMINOPHEN 500 MG TABLET (FP) PO SCH (07:00)
[2020-05-01 07:36] LABS: BASO % 0.4 % (0-2.0); EOS % 1.9 % (0-4.5); HEMOGLOBIN 12.9 GM/dl (10.7-15.3); LYMPH % 27.7 % (8-40); MCH 28.5 pg (25.7-33.7); MCHC 32.4 g/dl (32.0-36.0); MEAN CELL VOLUME 88.1 fl (80-96); MEAN PLT VOLUME 7.8 fl (7.5-11.1); MONO % 10.4 % (3.8-10.2); NEUT % 59.6 % (42.8-82.8); PLATELET COUNT 204 K/MM3 (134-434); RBC 4.53 M/mm3 (3.60-5.2); RDW 13.9 % (11.6-15.6)
[2020-05-01 07:49] LABS: INR 1.7 (0.82-1.09); PROTHROMBIN TIME (PATIENT) 18.8 SEC (10.2-13.0)
[2020-05-01 07:57] LABS: ALBUMIN 3.4 g/dl (3.4-5.0); BILIRUBIN,TOTAL 0.6 mg/dl (0.2-1); CALCIUM 8.7 mg/dl (8.5-10); CREATININE 0.9 mg/dl (0.55-1.3); PHOSPHOROUS 4.1 mg/dl (2.5-4.9); POTASSIUM 4.2 mmol/L (3.5-5.1); TOT PROT 5.5 g/dl (6.4-8.2)
--- NOTE | 2020-05-01 08:58 | EKG ---
Test Reason : Blood Pressure : / mmHG Vent. Rate : 091 BPM Atrial Rate : 072 BPM P-R Int : 000 ms QRS Dur : 084 ms QT Int : 364 ms P-R-T Axes : 000 037 006 degrees QTc Int : 447 ms ATRIAL FIBRILLATION ABNORMAL ECG WHEN COMPARED WITH ECG OF 30-APR-2020 14:45, NO SIGNIFICANT CHANGE WAS FOUND Confirmed by JEFFERY KULKARNI MD ([id number]) on 05/01/2020 8:58:07 AM Referred By: DR GANDHI Confirmed By:JEFFERY KULKARNI MD
--- NOTE | 2020-05-01 08:59 | EKG ---
Test Reason : Blood Pressure : / mmHG Vent. Rate : 098 BPM Atrial Rate : 288 BPM P-R Int : 000 ms QRS Dur : 084 ms QT Int : 346 ms P-R-T Axes : 000 034 013 degrees QTc Int : 441 ms ATRIAL FIBRILLATION ABNORMAL ECG WHEN COMPARED WITH ECG OF 30-APR-2020 07:25, NO SIGNIFICANT CHANGE WAS FOUND Confirmed by JEFFERY KULKARNI MD ([id number]) on 05/01/2020 8:58:55 AM Referred By: Nely SALEH Confirmed By:JEFFERY KULKARNI MD
--- NOTE | 2020-05-01 09:12 | PN ---
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 known history of coronary artery disease status post percutaneous coronary intervention stenting (ARLEN- LAD patent on coronary angiography April 18, 2011) negative pharmacologic Lexiscan myocardial perfusion imaging study for myocardial ischemia/August 01, 2017/September 04, 2019angina pectoris, diastolic left ventricular dysfunction with class 0 [place] [employer] classification left ventricular failure (LVEF between 55-60% on echocardiography performedJan2019), paroxysmal atrial fibrillation status post cryo -balloon catheter ablation/June 20, 2012 on chronic anticoagulation therapy with DOACs/Eliquis [id number] score of 4/HAS-BLED score of 2 recurrent asymptomatic arrhythmia August 01, 2019- post spontaneous conversion/EKG dated August 08, 2019, mitral valve regurgitation mild in severity of no clinical significance on echocardiography performed December 11, 2015/September 29, 2017/August 22, 2019, tricuspid valve regurgitation mild to moderate in severity with RVSP of 40 mmHg on echocardiography performed December 11, 2015/RVSP of 31 mmHg on echocardiography performed September 29, 2017/RVSP of 30 mmHg on echocardiography performed August 22, 2019, hypertensive cardiovascular disease/labile blood pressure, hypercholesterolemia/hypertriglyceridemia, carotid atherosclerosis mild in severity on carotid Doppler study performed May 29, 2014, gastroesophageal reflux disease/tracheolaryngeal reflux disease, H- pylori gastritis, degenerative lumbosacral disc disease with chronic low back pain and radiculopathy (post spinal cord stimulator implantation), restless leg syndrome, anxiety disorder and chronic insomnia who was last evaluated in the officeJun2019. Still reports exertional sob, palpitations, chest tightness without orthopnea or paroxysmal nocturnal dyspnea, near or true syncope. Remains in rapid afib, Toprol changed to sotalol, QT interval acceptable. - Current Medication List Current Medications: Active Medications Acetaminophen (Tylenol -) 650 mg PO Q6H PRN PRN Reason: PAIN LEVEL 4 - 6 Last Admin: 04/30/20 21:27 Dose: 650 mg Documented by: Apixaban (Eliquis -) 5 mg PO BID [facility] Last Admin: 04/30/20 21:26 Dose: 5 mg Documented by: Aspirin (Asa -) 81 mg PO DAILY [facility] Last Admin: 04/30/20 13:02 Dose: 81 mg Documented by: Atorvastatin Calcium (Lipitor -) 40 mg PO HS [facility] Last Admin: 04/30/20 21:27 Dose: 40 mg Documented by: Ezetimibe (Zetia -) 10 mg PO [facility] Last Admin: 04/30/20 21:26 Dose: 10 mg Documented by: Gabapentin (Neurontin -) 600 mg PO [facility] Last Admin: 04/30/20 21:26 Dose: 600 mg Documented by: Losartan Potassium (Cozaar -) 25 mg PO DAILY@1800 [facility] Last Admin: 04/30/20 17:55 Dose: 25 mg Documented by: Multivitamins/Minerals (Theragran-M) 1 each PO DAILY [facility] Last Admin: 04/30/20 13:01 Dose: 1 each Documented by: Non-Formulary Medication (Difluprednate [Durezol]) 5 ml OS BID [facility] [id number] Ethyl Esters (Lovaza -) 2 gm PO DAILY [facility] Last Admin: 04/30/20 12:58 Dose: 2 gm Documented by: Ranolazine (Ranexa -) 500 mg PO BID [facility] Last Admin: 04/30/20 21:26 Dose: 500 mg Documented by: Senna/Docusate Sodium (Pericolace -) 2 tablet PO [facility] Last Admin: 04/30/20 21:27 Dose: 2 tablet Documented by: Solifenacin (Vesicare -) 5 mg PO DAILY [facility] Last Admin: 04/30/20 13:03 Dose: 5 mg Documented by: Sotalol HCl (Betapace -) 80 mg PO BID [facility] Last Admin: 04/30/20 21:22 Dose: 80 mg Documented by: Trazodone HCl (Desyrel -) 50 mg PO [facility] Last Admin: 04/30/20 21:26 Dose: 50 mg Documented by: - Objective Vital Signs: Vital Signs Temperature 97.5 F L 05/01/20 06:00 Pulse Rate 84 05/01/20 06:00 Respiratory Rate 18 05/01/20 06:00 Blood Pressure 121/68 05/01/20 06:00 O2 Sat by Pulse Oximetry (%) 99 05/01/20 06:00 Constitutional: Yes: No Distress, Calm Neck: Yes: Supple Cardiovascular: Yes: Tachycardia, Pulse Irregular Respiratory: Yes: Regular, CTA Bilaterally Gastrointestinal: Yes: Soft, Hypoactive Bowel Sounds Edema: No Labs: CBC, BMP 05/01/20 07:01 05/01/20 07:01 INR, PTT INR 1.70 (0.82-1.09) H 05/01/20 07:01 - ....Imaging EKG: Report Reviewed (Tele: Rapid afib ECG: Afib @ 89 QTc 467 msec) Problem List - Problems (1) Atrial fibrillation Code(s): I48.91 - UNSPECIFIED ATRIAL FIBRILLATION Qualifiers: Atrial fibrillation type: paroxysmal Qualified Code(s): I48.0 - Paroxysmal atrial fibrillation (2) CAD in [place] artery Code(s): I25.10 - ATHSCL HEART DISEASE OF [place] CORONARY ARTERY W/O ANG PCTRS (3) Chest pain Code(s): R07.9 - CHEST PAIN, UNSPECIFIED Qualifiers: Ischemic chest pain type: stable angina pectoris (4) Hyperlipidemia Code(s): E78.5 - HYPERLIPIDEMIA, UNSPECIFIED Qualifiers: Hyperlipidemia type: mixed hyperlipidemia Qualified Code(s): E78.2 - Mixed hyperlipidemia (5) Hypertension Code(s): I10 - ESSENTIAL (PRIMARY) HYPERTENSION Qualifiers: Hypertension type: essential hypertension Qualified Code(s): I10 - Essential (primary) hypertension (6) Shortness of breath Code(s): R06.02 - SHORTNESS OF BREATH Assessment/Plan 04/30/[address]: Mild chronic interstitial lung disease Echocardiography performed August 22, 2019 revealed normal left ventricular size and systolic function with estimated LVEF between 55-60%, mild left atrial dilatation, normal right ventricle size and systolic function, mild mitral valve regurgitation, mild to moderate tricuspid valve regurgitation with calculated RVSP of 30 mmHg. Pharmacologic Lexiscan myocardial perfusion imaging study performed September 04, 2019 revealed small size anteroapical wall defect compatible with soft tissue attenuation/normal variant with normal left ventricular contraction pattern on LV gated analysis with calculated left ventricular ejection fraction of 66% at rest and 65% post Lexiscan infusion. 08/01/2017 Lexiscan Myoview: No ischemia, normal LVEF Assessment: 1. Coronary artery disease of [place] artery of [place] heart with stable angina pectoris 2. Status post insertion of drug eluting coronary artery stent 3. Angina pectoris 4. Dyspnea on exertion 5. Diastolic dysfunction, left ventricle 6. Paroxysmal atrial fibrillation 7. Hypertensive heart disease without heart failure 8. Labile blood pressure 9. Hypercholesterolemia 10. Hypertriglyceridemia 11. Exogenous obesity 1.Persistent exertional dyspnea in a patient with known history of coronary artery disease status post percutaneous coronary intervention stenting negative pharmacologic Lexiscan myocardial perfusion imaging study for myocardial ischemia/August 01, 2017- September 04, 2019angina pectoris. 2. Diastolic left ventricular dysfunction with class 0 [place] [employer] n classification left ventricular failure. 3. Paroxysmal atrial fibrillation post cryo- balloon catheter ablation on chronic anticoagulation therapy with DOAC's/Eliquis [id number] score of 4/HAS-BLED score of 2(with recurrent symptomatic arrhythmia) 4.Mitral valve regurgitation mild in severity (of no clinical significance). 5. Tricuspid valve regurgitation mild to moderate in severity with RVSP of 40 mmHg on echocardiography performed December 11, 2015/RVSP of 31 mmHg on echocardiography performed September 29, 2017/RVSP of 30 mmHg on echocardiography performed August 22, 2019. 6. Hypertensive cardiovascular disease, labile blood pressure near/at goal- reported adequate home blood pressure measurements. 7. Hypercholesterolemia/hypertriglyceridemia. 8. Carotid atherosclerosis mild in severity, asymptomatic. 9. History of gastroesophageal reflux disease/tracheolaryngeal reflux disease. 10. History of degenerative lumbosacral disc disease with chronic low back pain syndrome and radiculopathy post spinal cord stimulator implantation. 11. History of restless leg syndrome. 12. History of anxiety disorder. 13. History of chronic insomnia. 14. Exogenous obesity. Plan: 1. Continue sotalol 80 bid with check QTC x 1 day, add Cardizem CD 120 qd for additional rate-control, Eliquis 5 bid given elevated [id number] score of 4, losartan 25 qd, Zetia 10 qd, Lipitor 40 qd, Lovaza 2 bid, Ranexa 500 bid 2. Consider DCCV if afib persists and rate-control suboptimal despite antiarrhythmic therapy 3. F/u with Dr. Scruggs and [facility] service as outpatient 4. Consider sleep study r/o OSAS
--- NOTE | 2020-05-01 09:32 | PN ---
Progress Note, Physician Chief Complaint: Dyspnea History of Present Illness: 24HR EVENTS - toprol xl d/susan in favor of sotalol - pt remains in Atrial fibrillation - UCX growing lactose fermenting negative bacilli HPI: 74 year old F with h/o coronary artery disease status post percutaneous coronary intervention stenting (ARLEN LAD patent on coronary angiography April 18, 2011) negative pharmacologic study for myocardial ischemia Aug 2019, angina pectoris, diastolic left ventricular dysfunction with class 0 [place] [employer] classification left ventricular failure (LVEF between 65-70%), paroxysmal atrial fibrillation status post cryo balloon catheter ablation June 20, 2012 on chronic anticoagulation therapy with DOACsEliquis [id number] score of 4HASBLED score of 2 recurrent asymptomatic arrhythmia August 01, 2019, HTN with labile blood pressure, hypercholesterolemia, hypertriglyceridemia presents to ED for evaluation of GON[place]VES and chest discomfort x 4- 5 dys. Patient reports increased overall stress due to 's ill health. She has poor sleep at nights and alw ays feels fatigued. Over the last month she has noted a dry cough worse at night, mid-sternal chest discomfort, palpitations and decreased exercise tolerance. She must now limited by dyspnea to 1 block and has trouble completing her tasks around the house. Patient currently undergoing GI evaluation for chronic cough (had planned GI series today 04/30 and C-scope next week). She denies associated symptoms of neck/back/arm pain, no jaw pain, dizziness, diaphoresis, or syncope. No recent sick contacts or travel. Last COVID screen Mar 2020 prior to EGD was negative. On the afternoon of 04/29 her symptoms were "worse than usual doing her normal everyday activities", therefore, she decided to proceed to ED for evaluation. In ED: EKG Afib 99bpm Tele: Afib with rates up to 120s CT chest with mild chronic interstitial lung disease Labs WNL - Current Medication List Current Medications: Active Medications Acetaminophen (Tylenol -) 650 mg PO Q6H PRN PRN Reason: PAIN LEVEL 4 - 6 Last Admin: 04/30/20 21:27 Dose: 650 mg Documented by: Apixaban (Eliquis -) 5 mg PO BID [facility] Last Admin: 04/30/20 21:26 Dose: 5 mg Documented by: Aspirin (Asa -) 81 mg PO DAILY [facility] Last Admin: 04/30/20 13:02 Dose: 81 mg Documented by: Atorvastatin Calcium (Lipitor -) 40 mg PO [facility] Last Admin: 04/30/20 21:27 Dose: 40 mg Documented by: Ezetimibe (Zetia -) 10 mg PO [facility] Last Admin: 04/30/20 21:26 Dose: 10 mg Documented by: Gabapentin (Neurontin -) 600 mg PO [facility] Last Admin: 04/30/20 21:26 Dose: 600 mg Documented by: Losartan Potassium (Cozaar -) 25 mg PO DAILY@1800 [facility] Last Admin: 04/30/20 17:55 Dose: 25 mg Documented by: Multivitamins/Minerals (Theragran-M) 1 each PO DAILY [facility] Last Admin: 04/30/20 13:01 Dose: 1 each Documented by: Non-Formulary Medication (Difluprednate [Durezol]) 5 ml OS BID [facility] [id number] Ethyl Esters (Lovaza -) 2 gm PO DAILY [facility] Last Admin: 04/30/20 12:58 Dose: 2 gm Documented by: Ranolazine (Ranexa -) 500 mg PO BID [facility] Last Admin: 04/30/20 21:26 Dose: 500 mg Documented by: Senna/Docusate Sodium (Pericolace -) 2 tablet PO [facility] Last Admin: 04/30/20 21:27 Dose: 2 tablet Documented by: Solifenacin (Vesicare -) 5 mg PO DAILY [facility] Last Admin: 04/30/20 13:03 Dose: 5 mg Documented by: Sotalol HCl (Betapace -) 80 mg PO BID [facility] Last Admin: 04/30/20 21:22 Dose: 80 mg Documented by: Trazodone HCl (Desyrel -) 50 mg PO [facility] Last Admin: 04/30/20 21:26 Dose: 50 mg Documented by: - Objective Vital Signs: Vital Signs Temperature 97.5 F L 05/01/20 06:00 Pulse Rate 84 05/01/20 06:00 Respiratory Rate 18 05/01/20 06:00 Blood Pressure 121/68 05/01/20 06:00 O2 Sat by Pulse Oximetry (%) 99 05/01/20 06:00 Constitutional: Yes: Well Nourished, No Distress, Anxious Eyes: Yes: Conjunctiva Clear HENT: Yes: Atraumatic, Normocephalic Neck: Yes: Supple, Trachea Midline Cardiovascular: Yes: Pulse Irregular Respiratory: Yes: CTA Bilaterally Gastrointestinal: Yes: Normal Bowel Sounds, Soft ...Rectal Exam: Yes: Deferred Musculoskeletal: Yes: Back Pain Extremities: Yes: WNL Edema: No Peripheral Pulses WNL: Yes Peripheral Pulses: Left Radial: 2+, Right Radial: 2+, Left Doralis Pedis: 2+, Right Dorsalis Pedis: 2+ Integumentary: Yes: WNL Neurological: Yes: Alert, Oriented ...Motor Strength: WNL Psychiatric: Yes: Alert, Oriented Labs: CBC, BMP 05/01/20 07:01 05/01/20 07:01 INR, PTT INR 1.70 (0.82-1.09) H 05/01/20 07:01 - ....Imaging EKG: Report Reviewed (EKG 05/01/2020 Afib 98bpm.) Problem List - Problems (1) CAD in [place] artery Assessment/Plan: continue statin and aspirin ranexa BID cardiac diet Code(s): I25.10 - ATHSCL HEART DISEASE OF [place] CORONARY ARTERY W/O ANG PCTRS (2) Atrial fibrillation Assessment/Plan: continuous telemetry continue eliquis BID cardiology consulted- recs appreciated continue sotalol 80mg BID as per cardiology, start cardizem today for rate control Code(s): I48.91 - UNSPECIFIED ATRIAL FIBRILLATION Qualifiers: Atrial fibrillation type: paroxysmal Qualified Code(s): I48.0 - Paroxysmal atrial fibrillation (3) Chest pain Assessment/Plan: daily EKGs serial troponin negative. Code(s): R07.9 - CHEST PAIN, UNSPECIFIED Qualifiers: Ischemic chest pain type: stable angina pectoris (4) Shortness of breath Assessment/Plan: PRN oxygen for moderate to severe dyspnea incentive spirometry Code(s): R06.02 - SHORTNESS OF BREATH (5) Degenerative lumbar spinal stenosis Assessment/Plan: PRN APAP Neurontin 600mg qhs Ambulate as tolerated OOB to chair Code(s): M48.061 - SPINAL STENOSIS, LUMBAR REGION WITHOUT NEUROGENIC NIKOLAI (6) Constipation Assessment/Plan: pericolace daily Code(s): K59.00 - CONSTIPATION, UNSPECIFIED (7) Overactive bladder Assessment/Plan: vesicare 5mg daily Code(s): N32.81 - OVERACTIVE BLADDER (8) Depression Assessment/Plan: trazodone 50mg qhs Code(s): F32.9 - MAJOR DEPRESSIVE DISORDER, SINGLE EPISODE, UNSPECIFIED (9) Prophylactic measure Assessment/Plan: CORBY stockings SCDs Fall precautions daily MVIs isolation precautions while awaiting COVID screen Code(s): Z29.9 - ENCOUNTER FOR PROPHYLACTIC MEASURES, UNSPECIFIED (10) Hyperlipidemia Assessment/Plan: continue Zetia 10mg qhs change simvastatin to lipitor while inpt, due to non-formulary medication Code(s): E78.5 - HYPERLIPIDEMIA, UNSPECIFIED Qualifiers: Hyperlipidemia type: mixed hyperlipidemia Qualified Code(s): E78.2 - Mixed hyperlipidemia (11) Hypertension Assessment/Plan: change Azilsartan to losartan while inpt, due to non-formulary status Code(s): I10 - ESSENTIAL (PRIMARY) HYPERTENSION Qualifiers: Hypertension type: essential hypertension Qualified Code(s): I10 - Essential (primary) hypertension (12) UTI (urinary tract infection), uncomplicated Assessment/Plan: Ucx with >100, 000 gram negative lactose fermenting bacilli start macrodantin 50mg q6hrs - awaiting final culture data as rx may need to be changed based on sensitivity trend WBC and temp curve Code(s): N39.0 - URINARY TRACT INFECTION, SITE NOT SPECIFIED Impression/Plan Impression/Plan: Dispo: requires inpt care. Pt with persistent symptomatic Afib, currently attempting to chemically convert patient in order to avoid cardioversion. Visit type - Emergency Visit Emergency Visit: Yes ED Registration Date: 04/30/20 Care time: The patient presented to the Emergency Department on the above date and was hospitalized for further evaluation of their emergent condition. - New Patient This patient is new to me today: No - Critical Care Critical Care patient: No - Discharge Referral Referred to [facility] Med P.C.: No - Medication Review Med list reviewed for High Risk Meds patients 65 and older: Yes
[2020-05-01] MEDS: MULTIVITAMINS THER W-MINERALS COMBO TABLET (FP) PO SCH (09:46)
[2020-05-01] MEDS: OMEGA-3 ACID ETHYL ESTERS (FATTY-ACIDS) 1 GM CAPSULE (FP) PO SCH (09:46)
[2020-05-01] MEDS: APIXABAN 5 MG TABLET PO SCH ×2 (09:46→21:34)
[2020-05-01] MEDS: ASPIRIN 81 MG CHEWABLE TABLETS PO SCH (09:46)
[2020-05-01] MEDS: SOLIFENACIN SUCCINATE 5 MG TAB PO SCH (09:46)
[2020-05-01] MEDS: SOTALOL HCL 80 MG TABLET (FP) PO SCH ×2 (09:46→21:31)
[2020-05-01] MEDS: RANOLAZINE E.R. 500 MG TABLET (FP) PO SCH ×2 (09:46→21:35)
[2020-05-01] MEDS: NITROFURANTOIN MACROCRYSTAL 50 MG CAPSULE (FP) PO SCH ×3 (11:54→23:33)
[2020-05-01] MEDS: LOSARTAN POTASSIUM 25 MG TABLET PO SCH (17:55)
[2020-05-01] MEDS: ATORVASTATIN CA 40 MG TABLET (FP) PO SCH (21:34)
[2020-05-01] MEDS: traZODone HCL 50 MG TABLET (FP) PO SCH (21:34)
[2020-05-01] MEDS: GABAPENTIN 300 MG CAPSULE PO SCH (21:34)
[2020-05-01] MEDS: SENNOSIDES/DOCUSATE COMBO (SENNA PLUS) TABLET (UD) PO SCH (21:35)
[2020-05-01] MEDS: EZETIMIBE 10 MG TABLET (FP) PO SCH (21:35)
[2020-05-02] MEDS ORDERED: LOCK ITEM NR ONE (05:02)
[2020-05-02] MEDS: NITROFURANTOIN MACROCRYSTAL 50 MG CAPSULE (FP) PO SCH ×3 (06:27→18:10)
[2020-05-02] MEDS: ACETAMINOPHEN 325 MG TABLET (FP) PO PRN ×2 (06:29→19:45)
[2020-05-02 09:19] LABS: BASO % 0.6 % (0-2.0); EOS % 2.2 % (0-4.5); HEMATOCRIT 40.6 % (32.4-45.2); HEMOGLOBIN 13.3 GM/dl (10.7-15.3); LYMPH % 19.8 % (8-40); MCH 28.8 pg (25.7-33.7); MCHC 32.8 g/dl (32.0-36.0); MEAN CELL VOLUME 87.9 fl (80-96); MEAN PLT VOLUME 7.5 fl (7.5-11.1); MONO % 8.5 % (3.8-10.2); NEUT % 68.9 % (42.8-82.8); PLATELET COUNT 208 K/MM3 (134-434); RBC 4.62 M/mm3 (3.60-5.2); RDW 14.1 % (11.6-15.6); WHITE BLOOD COUNT 7.6 K/mm3 (4.0-10.8)
[2020-05-02] MEDS: ASPIRIN 81 MG CHEWABLE TABLETS PO SCH (09:41)
[2020-05-02] MEDS: RANOLAZINE E.R. 500 MG TABLET (FP) PO SCH ×2 (09:42→21:43)
[2020-05-02] MEDS: SOLIFENACIN SUCCINATE 5 MG TAB PO SCH (09:42)
[2020-05-02] MEDS: MULTIVITAMINS THER W-MINERALS COMBO TABLET (FP) PO SCH (09:42)
[2020-05-02] MEDS: APIXABAN 5 MG TABLET PO SCH ×2 (09:42→21:43)
[2020-05-02] MEDS: OMEGA-3 ACID ETHYL ESTERS (FATTY-ACIDS) 1 GM CAPSULE (FP) PO SCH (09:42)
[2020-05-02] MEDS: SOTALOL HCL 80 MG TABLET (FP) PO SCH ×3 (09:43→22:20)
[2020-05-02 09:44] LABS: ALBUMIN 3.8 g/dl (3.4-5.0); BILIRUBIN,TOTAL 0.8 mg/dl (0.2-1); CALCIUM 8.8 mg/dl (8.5-10); CREATININE 0.8 mg/dl (0.55-1.3); POTASSIUM 3.9 mmol/L (3.5-5.1); TOT PROT 6.3 g/dl (6.4-8.2)
--- NOTE | 2020-05-02 11:29 | PN ---
Physical Exam: SUBJECTIVE: Patient seen and examined, sitting in chair NAD, reports occasional sob on exertion EKG reviewed sinus cole-asymptomatic OBJECTIVE: Vital Signs Period Temp Pulse Resp BP Sys/Walker Pulse Ox Last 24 Hr 97.5 F-98.9 F 51-65 18-20 100-125/54-70 97-99 GENERAL: The patient is awake, alert, and fully oriented, in no acute distress. HEAD: Normal with no signs of trauma. EYES: PERRL, extraocular movements intact, sclera anicteric, conjunctiva clear. No ptosis. ENT: Ears normal, nares patent, oropharynx clear without exudates, moist mucous membranes. NECK: Trachea midline, full range of motion, supple. LUNGS: Breath sounds equal, clear to auscultation bilaterally, no wheezes, no cr ackles, no accessory muscle use. HEART: Regular rate and rhythm, S1, S2 without murmur, rub or gallop. ABDOMEN: Soft, nontender, nondistended, normoactive bowel sounds, no guarding, no rebound, no hepatosplenomegaly, no masses. EXTREMITIES: 2+ pulses, warm, well-perfused, no edema. NEUROLOGICAL: Cranial nerves II through XII grossly intact. Normal speech, gait not observed. PSYCH: Normal mood, normal affect. SKIN: Warm, dry, normal turgor, no rashes or lesions noted Laboratory Results - last 24 hr 04/30/20 05/02/20 05/02/20 08:00 09:10 09:10 WBC 7.6 RBC 4.62 Hgb 13.3 Hct 40.6 MCV 87.9 MCH 28.8 MCHC 32.8 RDW 14.1 Plt Count 208 MPV 7.5 Absolute Neuts (auto) 5.3 Neutrophils % 68.9 Lymphocytes % 19.8 Monocytes % 8.5 Eosinophils % 2.2 Basophils % 0.6 Sodium 136 Potassium 3.9 Chloride 103 Carbon Dioxide 26 Anion Gap 7 L BUN 18.0 Creatinine 0.8 Est GFR (CKD-EPI)AfAm 83.59 Est GFR (CKD-EPI)NonAf 72.12 Random Glucose 94 Calcium 8.8 Magnesium 2.0 Total Bilirubin 0.8 AST 20 ALT 18 Alkaline Phosphatase 45 Total Protein 6.3 L Albumin 3.8 COVID-19 (CHANDU) Not detected Active Medications Generic Name Dose Route Start Last Admin Trade Name Freq PRN Reason Stop Dose Admin Acetaminophen 650 mg 04/30/20 09:47 05/02/20 06:29 Tylenol - PO 650 mg Q6H PRN Administration PAIN LEVEL 4 - 6 Apixaban 5 mg 04/30/20 10:00 05/02/20 09:42 Eliquis - PO 5 mg BID ISABELLA Administration Aspirin 81 mg 04/30/20 10:00 05/02/20 09:41 Asa - PO 81 mg DAILY ISABELLA Administration Atorvastatin Calcium 40 mg 04/30/20 22:00 05/01/20 21:34 Lipitor - PO 40 mg HS ISABELLA Administration Diltiazem HCl 120 mg 05/01/20 10:15 05/02/20 09:42 Cardizem Cd - PO 120 mg DAILY ISABELLA Administration Ezetimibe 10 mg 04/30/20 22:00 05/01/20 21:35 Zetia - PO 10 mg HS ISABELLA Administration Gabapentin 600 mg 04/30/20 22:00 05/01/20 21:34 Neurontin - PO 600 mg HS ISABELLA Administration Losartan Potassium 25 mg 04/30/20 18:00 05/01/20 17:55 Cozaar - PO 25 mg DAILY@1800 ISABELLA Administration Multivitamins/Minerals 1 each 04/30/20 10:00 05/02/20 09:42 Theragran-M PO 1 each DAILY [facility] Administration Nitrofurantoin Macrocrystals 50 mg 05/01/20 12:00 05/02/20 06:27 Macrodantin - PO 05/04/20 12:00 50 mg Q6HPO ISABELLA Administration Non-Formulary Medication 5 ml 04/30/20 10:00 Difluprednate [Durezol] OS BID [facility] Cnyzl-0-Slrd Ethyl Esters 2 gm 04/30/20 10:00 05/02/20 09:42 Lovaza - PO 2 gm DAILY IS[facility]A Administration Ranolazine 500 mg 04/30/20 10:00 05/02/20 09:42 Ranexa - PO 500 mg BID ISABELLA Administration Senna/Docusate Sodium 2 tablet 04/30/20 22:00 05/01/20 21:35 Pericolace - PO 2 tablet HS ISABELLA Administration Solifenacin 5 mg 04/30/20 10:00 05/02/20 09:42 Vesicare - PO 5 mg DAILY ISABELLA Administration Sotalol HCl 80 mg 04/30/20 22:00 05/02/20 09:43 Betapace - PO Not Given BID ISABELLA Trazodone HCl 50 mg 04/30/20 22:00 05/01/20 21:34 Desyrel - PO 50 mg HS ISABELLA Administration ASSESSMENT/PLAN: EKG: Report Reviewed (EKG 05/02/2020 sinus cole 57 bpm.) Problem List - Problems (1) CAD in [place] artery Assessment/Plan: continue statin and aspirin ranexa BID cardiac diet Code(s): I25.10 - ATHSCL HEART DISEASE OF [place] CORONARY ARTERY W/O ANG PCTRS (2) Atrial fibrillation Assessment/Plan: continuous telemetry continue eliquis BID cardiology consulted- recs appreciated continue sotalol 80mg BID as per cardiology, started cardizem for rate control Code(s): I48.91 - UNSPECIFIED ATRIAL FIBRILLATION Qualifiers: Atrial fibrillation type: paroxysmal Qualified Code(s): I48.0 - Paroxysmal atrial fibrillation (3) Chest pain Assessment/Plan: daily EKGs serial troponin negative. Code(s): R07.9 - CHEST PAIN, UNSPECIFIED Qualifiers: Ischemic chest pain type: stable angina pectoris (4) Shortness of breath Assessment/Plan: PRN oxygen for moderate to severe dyspnea incentive spirometry Code(s): R06.02 - SHORTNESS OF BREATH (5) Degenerative lumbar spinal stenosis Assessment/Plan: PRN APAP Neurontin 600mg qhs Ambulate as tolerated OOB to chair Code(s): M48.061 - SPINAL STENOSIS, LUMBAR REGION WITHOUT NEUROGENIC NIKOLAI (6) Constipation Assessment/Plan: pericolace daily Code(s): K59.00 - CONSTIPATION, UNSPECIFIED (7) Overactive bladder Assessment/Plan: vesicare 5mg daily Code(s): N32.81 - OVERACTIVE BLADDER (8) Depression Assessment/Plan: trazodone 50mg qhs Code(s): F32.9 - MAJOR DEPRESSIVE DISORDER, SINGLE EPISODE, UNSPECIFIED (9) Prophylactic measure Assessment/Plan: CORBY stockings SCDs Fall precautions daily MVIs isolation precautions while awaiting COVID screen Code(s): Z29.9 - ENCOUNTER FOR PROPHYLACTIC MEASURES, UNSPECIFIED (10) Hyperlipidemia Assessment/Plan: continue Zetia 10mg qhs change simvastatin to lipitor while inpt, due to non-formulary medication Code(s): E78.5 - HYPERLIPIDEMIA, UNSPECIFIED Qualifiers: Hyperlipidemia type: mixed hyperlipidemia Qualified Code(s): E78.2 - Mixed hyperlipidemia (11) Hypertension Assessment/Plan: change Azilsartan to losartan while inpt, due to non-formulary status Code(s): I10 - ESSENTIAL (PRIMARY) HYPERTENSION Qualifiers: Hypertension type: essential hypertension Qualified Code(s): I10 - Essential (primary) hypertension (12) UTI (urinary tract infection), uncomplicated Assessment/Plan: Ucx with >100, 000 klebsiella pna macrodantin 50mg q6hrs - trend WBC and temp curve Code(s): N39.0 - URINARY TRACT INFECTION, SITE NOT SPECIFIED Impression/Plan Impression/Plan: Dispo: requires inpt care. Pt in sinus cole, pt has cardio apt Monday attempting to chemically convert patient in order to avoid cardioversion. Visit type - Emergency Visit Emergency Visit: Yes ED Registration Date: 04/30/20 Care time: The patient presented to the Emergency Department on the above date and was hospitalized for further evaluation of their emergent condition. - New Patient This patient is new to me today: Yes Date on this admission: 05/02/20 - Critical Care Critical Care patient: No - Medication Review Med list reviewed for High Risk Meds patients 65 and older: No
--- NOTE | 2020-05-02 15:09 | PN ---
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 known history of coronary artery disease status post percutaneous coronary intervention stenting (ARLEN- LAD patent on coronary angiography April 18, 2011) negative pharmacologic Lexiscan myocardial perfusion imaging study for myocardial ischemia/August 01, 2017/September 04, 2019angina pectoris, diastolic left ventricular dysfunction with class 0 [place] [employer] classification left ventricular failure (LVEF between 55-60% on echocardiography performedJan2019), paroxysmal atrial fibrillation status post cryo -balloon catheter ablation/June 20, 2012 on chronic anticoagulation therapy with DOACs/Eliquis [id number] score of 4/HAS-BLED score of 2 recurrent asymptomatic arrhythmia August 01, 2019- post spontaneous conversion/EKG dated August 08, 2019, mitral valve regurgitation mild in severity of no clinical significance on echocardiography performed December 11, 2015/September 29, 2017/August 22, 2019, tricuspid valve regurgitation mild to moderate in severity with RVSP of 40 mmHg on echocardiography performed December 11, 2015/RVSP of 31 mmHg on echocardiography performed September 29, 2017/RVSP of 30 mmHg on echocardiography performed August 22, 2019, hypertensive cardiovascular disease/labile blood pressure, hypercholesterolemia/hypertriglyceridemia, carotid atherosclerosis mild in s everity on carotid Doppler study performed May 29, 2014, gastroesophageal reflux disease/tracheolaryngeal reflux disease, H- pylori gastritis, degenerative lumbosacral disc disease with chronic low back pain and radiculopathy (post spinal cord stimulator implantation), restless leg syndrome, anxiety disorder and chronic insomnia who was last evaluated in the officeJun2019. Since the above evaluation, patient presents to [facility] with exertional sob, palpitations, chest tightness without orthopnea or paroxysmal nocturnal dyspnea, near or true syncope. Patient continues to reportpersistence ofintermittent bilateral lower extremity edema that worsens in the latter part of the day, severity of which has not increased. Patient continues to report persistence of low back discomfort with radiation to the lower extremities limiting her ambulation/exercise ability- above is related to her degenerative lumbosacral disc disease with lumbar radiculopathy. - Current Medication List Current Medications: Active Medications Acetaminophen (Tylenol -) 650 mg PO Q6H PRN PRN Reason: PAIN LEVEL 4 - 6 Last Admin: 05/02/20 06:29 Dose: 650 mg Documented by: Apixaban (Eliquis -) 5 mg PO BID [facility] Last Admin: 05/02/20 09:42 Dose: 5 mg Documented by: Aspirin (Asa -) 81 mg PO DAILY [facility] Last Admin: 05/02/20 09:41 Dose: 81 mg Documented by: Atorvastatin Calcium (Lipitor -) 40 mg PO HS [facility] Last Admin: 05/01/20 21:34 Dose: 40 mg Documented by: Diltiazem HCl (Cardizem Cd -) 120 mg PO DAILY [facility] Last Admin: 05/02/20 09:42 Dose: 120 mg Documented by: Ezetimibe (Zetia -) 10 mg PO [facility] Last Admin: 05/01/20 21:35 Dose: 10 mg Documented by: Gabapentin (Neurontin -) 600 mg PO [facility] Last Admin: 05/01/20 21:34 Dose: 600 mg Documented by: Losartan Potassium (Cozaar -) 25 mg PO DAILY@1800 [facility] Last Admin: 05/01/20 17:55 Dose: 25 mg Documented by: Multivitamins/Minerals (Theragran-M) 1 each PO DAILY [facility] Last Admin: 05/02/20 09:42 Dose: 1 each Documented by: Nitrofurantoin Macrocrystals (Macrodantin -) 50 mg PO Q6HPO [facility] Stop: 05/04/20 12:00 Last Admin: 05/02/20 11:48 Dose: 50 mg Documented by: Non-Formulary Medication (Difluprednate [Durezol]) 5 ml OS BID [facility] Orltx-0-Dhgc Ethyl Esters (Lovaza -) 2 gm PO DAILY [facility] Last Admin: 05/02/20 09:42 Dose: 2 gm Documented by: Ranolazine (Ranexa -) 500 mg PO BID [facility] Last Admin: 05/02/20 09:42 Dose: 500 mg Documented by: Senna/Docusate Sodium (Pericolace -) 2 tablet PO [facility] Last Admin: 05/01/20 21:35 Dose: 2 tablet Documented by: Solifenacin (Vesicare -) 5 mg PO DAILY [facility] Last Admin: 05/02/20 09:42 Dose: 5 mg Documented by: Sotalol HCl (Betapace -) 80 mg PO BID [facility] Last Admin: 05/02/20 09:43 Dose: Not Given Documented by: Trazodone HCl (Desyrel -) 50 mg PO HS [facility] Last Admin: 05/01/20 21:34 Dose: 50 mg Documented by: - Objective Vital Signs: Vital Signs Temperature 97.8 F 05/02/20 09:44 Pulse Rate 59 L 05/02/20 09:44 Respiratory Rate 18 05/02/20 09:44 Blood Pressure 122/54 L 05/02/20 09:44 O2 Sat by Pulse Oximetry (%) 99 05/02/20 09:44 Labs: CBC, BMP 05/02/20 09:10 05/02/20 09:10 INR, PTT INR 1.70 (0.82-1.09) H 05/01/20 07:01
[2020-05-02] MEDS ORDERED: SOTALOL HCL 80 MG TABLET (FP) PO SCH (15:53)
--- NOTE | 2020-05-02 15:58 | EKG ---
Test Reason : Blood Pressure : / mmHG Vent. Rate : 089 BPM Atrial Rate : 357 BPM P-R Int : 000 ms QRS Dur : 082 ms QT Int : 384 ms P-R-T Axes : 000 047 043 degrees QTc Int : 467 ms ATRIAL FIBRILLATION ABNORMAL ECG WHEN COMPARED WITH ECG OF 30-APR-2020 22:35, NO SIGNIFICANT CHANGE WAS FOUND Confirmed by JEFFERY KULKARNI MD ([id number]) on 05/01/2020 2:46:58 PM Referred By: DR GARCIA Confirmed By:JEFFERY KULKARNI MD
[2020-05-02] MEDS: LOSARTAN POTASSIUM 25 MG TABLET PO SCH (18:10)
[2020-05-02] MEDS: GABAPENTIN 300 MG CAPSULE PO SCH (21:42)
[2020-05-02] MEDS: traZODone HCL 50 MG TABLET (FP) PO SCH (21:42)
[2020-05-02] MEDS: EZETIMIBE 10 MG TABLET (FP) PO SCH (21:43)
[2020-05-02] MEDS: ATORVASTATIN CA 40 MG TABLET (FP) PO SCH (21:43)
[2020-05-02] MEDS: SENNOSIDES/DOCUSATE COMBO (SENNA PLUS) TABLET (UD) PO SCH (21:44)
[2020-05-03] MEDS: NITROFURANTOIN MACROCRYSTAL 50 MG CAPSULE (FP) PO SCH ×3 (00:03→13:11)
[2020-05-03] MEDS: OMEGA-3 ACID ETHYL ESTERS (FATTY-ACIDS) 1 GM CAPSULE (FP) PO SCH (09:43)
[2020-05-03] MEDS: ASPIRIN 81 MG CHEWABLE TABLETS PO SCH (09:43)
[2020-05-03] MEDS: RANOLAZINE E.R. 500 MG TABLET (FP) PO SCH (09:43)
[2020-05-03] MEDS: SOLIFENACIN SUCCINATE 5 MG TAB PO SCH (09:44)
[2020-05-03] MEDS: APIXABAN 5 MG TABLET PO SCH (09:44)
[2020-05-03] MEDS: SOTALOL HCL 80 MG TABLET (FP) PO SCH (09:45)
[2020-05-03] MEDS: MULTIVITAMINS THER W-MINERALS COMBO TABLET (FP) PO SCH (09:46)
[2020-05-03] MEDS ORDERED: LORATADINE 10 MG TABLET PO SCH (10:00)
[2020-05-03 10:33] LABS: ALBUMIN 3.6 g/dl (3.4-5.0); BILIRUBIN,TOTAL 0.6 mg/dl (0.2-1); CALCIUM 9.1 mg/dl (8.5-10); CREATININE 0.8 mg/dl (0.55-1.3); POTASSIUM 3.9 mmol/L (3.5-5.1); TOT PROT 5.9 g/dl (6.4-8.2)
[2020-05-03] MEDS ORDERED: POTASSIUM CHLORIDE TABS 20 MEQ TABLET.ER (FP) PO ONE (13:27)
--- NOTE | 2020-05-03 14:04 | DS ---
Physical Exam: SUBJECTIVE: Patient seen and examined OBJECTIVE: Vital Signs Period Temp Pulse Resp BP Sys/Walker Pulse Ox Last 24 Hr 97.3 F-97.9 F 51-65 18-18 101-139/44-75 97-100 PHYSICAL EXAM GENERAL: The patient is awake, alert, and fully oriented, in no acute distress. HEAD: Normal with no signs of trauma. EYES: PERRL, sclera anicteric, conjunctiva clear. Oropharynx clear without exudates, moist mucous membranes. NECK: Trachea midline, full range of motion, supple. LUNGS: Breath sounds equal, clear to auscultation bilaterally, no wheezes, no crackles, no accessory muscle use. HEART: Regular rate and rhythm, S1, S2 harsh SM murmur ABDOMEN: Soft, nontender, nondistended, normoactive bowel sounds, no guarding, no rebound, no hepatosplenomegaly, no masses. EXTREMITIES: 2+ pulses, warm, well-perfused, no edema. NEUROLOGICAL: Cranial nerves II through XII grossly intact. Normal speech, gait normal PSYCH: Normal mood, normal affect. SKIN: Warm, dry, normal turgor, no rashes or lesions noted. LABS Laboratory Results - last 24 hr 05/03/20 09:11 Sodium 138 Potassium 3.9 Chloride 105 Carbon Dioxide 26 Anion Gap 7 L BUN 17.0 Creatinine 0.8 Est GFR (CKD-EPI)AfAm 83.59 Est GFR (CKD-EPI)NonAf 72.12 Random Glucose 102 Calcium 9.1 Total Bilirubin 0.6 AST 18 ALT 18 Alkaline Phosphatase 44 L Total Protein 5.9 L Albumin 3.6 HOSPITAL COURSE: Date of Admission:04/30/20 Date of Discharge: 05/03/20 Minutes to complete discharge: 45 Discharge Summary Problems reviewed: Yes Reason For Visit: SHORTNESS OF BREATH,ATRIAL FIBRILLATION,CHEST PAIN Current Active Problems Atrial fibrillation (Acute) CAD in [place] artery (Acute) Chest pain (Acute) Constipation (Acute) Degenerative lumbar spinal stenosis (Acute) Depression (Acute) Hyperlipidemia (Acute) Hypertension (Acute) Overactive bladder (Acute) Prophylactic measure (Acute) Shortness of breath (Acute) UTI (urinary tract infection), uncomplicated (Acute) Procedures: Principal: Chest X-ray: Report Reviewed (CXR 04/30/2020 2 views of the chest to been submitted. There is a weak inspiration with spinal stimulator wiring, prominent heart, sclerotic knob and prominent [place]. There are some atelectatic changes at the right base and left base. There is abdominal disten tion but no sign of infiltrate or failure. Pneumothorax is not seen. The soft tissues are intact. There is a scoliosis with some arthritic changes. Correlation recommended. Impression: Weak inspiration. Spinal stimulator wiring. Minimal basilar atelectatic changes.). . Cat Scan: Report Reviewed (CT chest 04/30/20 (without contrast) Examination of the mediastinum demonstrates no evidence of mediastinal masses, fluid collections or lymphadenopathy. The heart is not enlarged. There is a trace amount of pericardial fluid. There is also extensive coronary artery calci fication. The lung rose are free of pulmonary masses, areas of acute consolidation or pleural effusions. There are slightly increased interstitial markings diffusely indicative of a mild degree of chronic lung disease. Minimal platelike atelectasis is also noted at the right lung base. Limited evaluation of the upper abdomen demonstrates no acute abnormalities. There is no evidence of acute bony pathology. There is a neuro stimulating device within the thoracic spinal canal. IMPRESSION: Mild chronic interstitial lung disease with no evidence of acute pathology within the chest. Please see above discussion. Reported By: Erick Cardenas MD 04/30/20 0958) Hospital Course: 74 year old F with h/o coronary artery disease status post percutaneous coronary intervention stenting (ARLEN LAD patent on coronary angiography April 18, 2011) negative pharmacologic study for myocardial ischemia Aug 2019, angina pectoris, diastolic left ventricular dysfunction with class 0 [place] [employer] classification left ventricular failure (LVEF between 65-70%), paroxysmal atrial fibrillation status post cryo balloon catheter ablation June 20, 2012 on chronic anticoagulation therapy with DOACsEliquis [id number] score of 4HASBLED score of 2 recurrent asymptomatic arrhythmia August 01, 2019, HTN with labile blood pressure, hypercholesterolemia, hypertriglyceridemia presents to ED for evaluation of G[place]ES and chest discomfort x 4- 5 dys. Patient reports increased overall stress due to 's ill health. She has poor sleep at nights and always feels fatigued. Over the last month she has noted a dry cough worse at night, mid-sternal chest discomfort, palpitations and decreased exercise tolerance. She must now limited by dyspnea to 1 block and has trouble completing her tasks around the house. Patient currently undergoing GI evaluation for chronic cough (had planned GI series today 04/30 and C-scope next week). She denies associated symptoms of neck/back/arm pain, no jaw pain, dizziness, diaphoresis, or syncope. No recent sick contacts or travel. Last COVID screen Mar 2020 prior to EGD was negative. On the afternoon of 04/29 her symptoms were "worse than usual doing her normal everyday activities", therefore, she decided to proceed to ED for evaluation. In ED: EKG Afib 99bpm Tele: Afib with rates up to 120s CT chest with mild chronic interstitial lung disease Labs WNL Decision made to admit patient for continued workup. On hospital day #1, metoprolol was discontinued and pt started on sotalol. However, due to persistent symptomatic atrial fibrillation, cardizem was added to her regimen on hospital day #2. Pt chemically converted to SB/SR. QTC on pre-discharge EKG 445ms. Dyspnea much improved. COVID screen negative. Mrs. Jones was also noted to have an kLEBSIELLA UTI treated with macrodantin 50mg QID, which was transitioned to augmentin 500/125mg BID x5days at the time of discharge after sensitivities had resulted. pt was deemed stable for discharge home on 05/03. She has a scheduled appointment with Cardiology in two days on 05/05. Health Concerns: Schedule outpatient sleep study to assess for possible sleep apnea. Your primary care provider or associate artistic director can assist with making arrangements to complete sleep study. Plan of Treatment: follow up with cardiology on Saturday 05/05 complete AUGMENTIN-- treatment for Klebsiella UTI DISCONTINUE TOPROL XL, CONTINUE SOTALOL AND CARDIZEM Goals: Please take HR and BP daily. If you experience severe low blood pressure and low heart rate with associated dizziness, please call cardiology to discuss symptoms. Condition: Improved - Instructions Diet, Activity, Other Instructions: Discharge Instructions for Atrial Fibrillation You have been diagnosed with an abnormal heart rhythm called atrial fibrillation (AFib). This means your hearts 2 upper chambers quiver rather than squeeze the blood out in a normal pattern. This leads to an irregular and sometimes rapid he artbeat. Some people will have symptoms such as a flip-flopping heartbeat, chest pain, lightheadedness, or shortness of breath. Other people may have no symptoms at all. AFib is serious because it affects the hearts ability to fill with blood as it should. Blood clots may form. This increases the risk for stroke. Untreated, it can also lead to heart failure. AFib can be controlled. With treatment, most people lead normal lives. Treatment options Treatment for AFib depends on your age, symptoms, how long you have had it, and other factors. You will have a complete evaluation to find out if you have any abnormalities that caused your heart to go into AFib. This might be blocked heart arteries, heart valve problems, or a thyroid problem. Your doctor will assess your case and discuss choices with you. Treatment choices may include: Treating an underlying disorder that puts you at risk for atrial fibrillation. For example, correcting an abnormal thyroid or electrolyte problem, or treating a blocked heart artery. Restoring a normal heart rhythm with an electrical shock (cardioversion) or with an antiarrhythmic medicine (chemical cardioversion) Using medicine to control your heart rate Preventing the risk for blood clot and stroke using blood-thinning medicines, such as aspirin or clopidogrel. Preventing the risk of blood clot and stroke with procedures such as left atrial appendage closure. In this procedure, a small pouch in the top of your atrium where blood clots often form is blocked off. It can prevent blood clots and redu ce stroke risk without the need for lifelong blood thinner (anticoagulants). Doing catheter ablation or a surgical maze procedure. These procedures use different methods to create scar tissue in certain areas of heart. This interrupts the abnormal electrical signals that cause AFib. This may be an option when medicines don't work, or instead of long-term medicine. Other treatment choices may be recommended for you by your doctor. Managing risk factors for stroke and preventing heart failure are important parts of any treatment plan for AFib. Home care Take your medicines exactly as directed. Dont skip doses. Work with your doctor to find the right medicines and doses for you. Learn to take your own pulse. Keep a record of your results. Ask your doctor which pulse rates mean that you need medical attention. Slowing your pulse is often the goal of treatment. Ask your doctor if its OK for you to use an automatic machine to check your pulse at home. Sometimes these machines dont count the pulse correctly with AFib. Limit your intake of coffee, tea, cola, and other drinks with caffeine. Talk with your doctor about whether you should cut out caffeine. Don't take tbja-gsr-wjzlmli medicines that have caffeine in them. Also avoid medicines with pseudoephedrine. Let your doctor know what medicines you take, including prescription and dgow-fga-awjvsbm medicines, as well as any supplements. They interfere with some medicines given for AFib. Ask your doctor about whether you can drink alcohol. Some people need to avoid alcohol to better treat AFib. If you are taking blood-thinner medicines, alcohol may interfere with them by increasing their effect. Never take stimulants such as amphetamines or cocaine. These drugs can speed up your heart rate and trigger AFib. Manage your weight. If you are above your ideal body weight, losing excess pounds can reduce your incidence of AFib. Follow-up care Follow up with your doctor, or as advised. Reference: [email or web address]- [email or web address]_[email or web address]_[email or web address]_[email or web address] Referrals: Mina Scruggs MD [Staff Physician] - Disposition: HOME - Home Medications Comprehensive Discharge Medication List: Ambulatory Orders Acetaminophen [Tylenol .Extra-Strength -] 1,000 mg PO AM 04/30/20 Apixaban [Eliquis -] 5 mg PO BID 04/30/20 Aspirin [ASA -] 1 tab PO DAILY 04/30/20 Azilsartan Medoxomil [Edarbi] 1 tab PO AM 04/30/20 Cranberry 4,200 mg PO AM 04/30/20 Difluprednate [Durezol] 5 ml OS BID 04/30/20 Ezetimibe/Simvastatin [Ezetimibe-Simvastatin 10-80 mg] 1 each PO DAILY 04/30/20 Gabapentin 600 mg PO HS 04/30/20 Multivit-Min/FA/Lycopen/Lutein [Centrum Silver Tablet] 1 each PO DAILY 04/30/20 Mallory-3 Acid Ethyl Esters [Lovaza -] 2,000 mg PO DAILY 04/30/20 Ranolazine [Ranexa] 500 mg PO BID 04/30/20 Ropinirole HCl [Ropinirole ER] 2 mg PO HS 04/30/20 Sennosides/Docusate Sodium [Pericolace -] 2 each PO HS 04/30/20 Vit C/Vit E AC/Lut/Copper/Zinc [Preservision Lutein Softgel] 1 each PO 04/30/20 Vit C/Vit E AC/Lut/Copper/Zinc [Preservision Lutein Softgel] 1 each PO DAILY 04/30/20 traZODone HCL [Trazodone HCl] 50 mg PO HS 04/30/20 Acetaminophen [Tylenol .Regular Strength -] 650 mg PO Q6H PRN tablet 05/03/20 Amox-Tr/K Cl [Augmentin - 500Mg Tablet] 1 tab PO BID 5 Days #10 tab 05/03/20 Diltiazem Cd [Cardizem Cd -] 120 mg PO DAILY 30 Days #30 cap.cd.24h 05/03/20 Solifenacin Succinate [Vesicare -] 5 mg PO DAILY tab 05/03/20 Sotalol HCl [Betapace -] 80 mg PO BID 30 Days #60 tablet 05/03/20 traZODone HCL [Desyrel -] 50 mg PO HS tablet 05/03/20 Prescription Drug Monitoring Program (I-STOP) results: I-STOP not reviewed Problem List - Problems (1) CAD in [place] artery Code(s): I25.10 - ATHSCL HEART DISEASE OF [place] CORONARY ARTERY W/O ANG PCTRS (2) Atrial fibrillation Code(s): I48.91 - UNSPECIFIED ATRIAL FIBRILLATION Qualifiers: Atrial fibrillation type: paroxysmal Qualified Code(s): I48.0 - Paroxysmal atrial fibrillation (3) Chest pain Code(s): R07.9 - CHEST PAIN, UNSPECIFIED Qualifiers: Ischemic chest pain type: stable angina pectoris (4) Shortness of breath Code(s): R06.02 - SHORTNESS OF BREATH (5) Constipation Code(s): K59.00 - CONSTIPATION, UNSPECIFIED (6) Overactive bladder Code(s): N32.81 - OVERACTIVE BLADDER (7) Depression Code(s): F32.9 - MAJOR DEPRESSIVE DISORDER, SINGLE EPISODE, UNSPECIFIED (8) Hyperlipidemia Code(s): E78.5 - HYPERLIPIDEMIA, UNSPECIFIED Qualifiers: Hyperlipidemia type: mixed hyperlipidemia Qualified Code(s): E78.2 - Mixed hyperlipidemia (9) Hypertension Code(s): I10 - ESSENTIAL (PRIMARY) HYPERTENSION Qualifiers: Hypertension type: essential hypertension Qualified Code(s): I10 - Essential (primary) hypertension (10) UTI (urinary tract infection), uncomplicated Code(s): N39.0 - URINARY TRACT INFECTION, SITE NOT SPECIFIED This patient is new to me today: No Emergency Visit: Yes ED Registration Date: 04/30/20 Care time: The patient presented to the Emergency Department on the above date and was hospitalized for further evaluation of their emergent condition. Critical Care patient: No - Discharge Referral Referred to [facility] No
[2020-05-03 14:23] VITALS: BP 120/61; PULSE 73; TEMP 97.8
--- NOTE | 2020-05-05 14:07 | EKG ---
Test Reason : Blood Pressure : / mmHG Vent. Rate : 057 BPM Atrial Rate : 057 BPM P-R Int : 172 ms QRS Dur : 084 ms QT Int : 470 ms P-R-T Axes : 050 043 045 degrees QTc Int : 457 ms SINUS BRADYCARDIA OTHERWISE NORMAL ECG WHEN COMPARED WITH ECG OF 01-MAY-2020 06:40, SINUS RHYTHM HAS REPLACED ATRIAL FIBRILLATION VENT. RATE HAS DECREASED BY 32 BPM Confirmed by Herson Arriola MD ([id number]) on 05/05/2020 2:07:36 PM Referred By: MARYGMARTIN Confirmed By:Herson Arriola MD
== END 2020-05-03 14:30 | disposition home or self-care (01) | DRG 303 ==
LOC: FER 07:18 → FM/S 10:12
PROVIDERS: ATTEND Nurse Practitioner Family
DX: I25.119 Atherosclerotic heart disease of native coronary artery with unspecified angina pectoris (principal); I50.30 Unspecified diastolic (congestive) heart failure; N39.0 Urinary tract infection, site not specified; I48.0 Paroxysmal atrial fibrillation; M48.061 Spinal stenosis, lumbar region without neurogenic claudication; K59.00 Constipation, unspecified; N32.81 Overactive bladder; F32.9 Major depressive disorder, single episode, unspecified; E78.5 Hyperlipidemia, unspecified; B96.1 Klebsiella pneumoniae [K. pneumoniae] as the cause of diseases classified elsewhere; R07.9 Chest pain, unspecified; E66.9 Obesity, unspecified; Z68.32 Body mass index [BMI] 32.0-32.9, adult; R00.0 Tachycardia, unspecified; I11.0 Hypertensive heart disease with heart failure
CPT/HCPCS: 36415; 71046-TC-FY; 71250-TC; 80053; 80061; 81003; 81015; 83036; 83721; 83735; 83880; 84100; 84443; 84484; 85025; 85610; 87086; 87186; 93005; 93010; 99285-25; U0003

== ENCOUNTER 2021-08-14 20:10 | Emergency (ER) | payer OTHER ==
[2021-08-14] MEDS ORDERED: SUCRALFATE 1 GM TABLET (FP) PO ONE (20:15)
[2021-08-14 20:42] VITALS: BP 155/58; PULSE 93; TEMP 98.8; BMI 29.2
[2021-08-14] MEDS ORDERED: SUCRALFATE 1 GM/10 ML UNIT DOSE CUPS ONE (20:46)
== END 2021-08-14 21:17 | disposition home or self-care (01) ==
LOC: SUPCPDRO 20:10 → FER 20:10
DX: R05.9 Cough, unspecified (principal)
CPT/HCPCS: 71046-TC-FY; 93005; 99284-25

== ENCOUNTER 2021-08-18 12:58 | Emergency (ER) | payer OTHER ==
[2021-08-18 13:37] VITALS: BP 131/70; PULSE 86; TEMP 98.1; BMI 29.2
[2021-08-18] MEDS ORDERED: AMOX TR/POT CLAV 875MG/125MG TABLETS (FP) PO ONE (14:04)
[2021-08-18] MEDS ORDERED: AMOX TR/POT CLAV 875MG/125MG TABLETS (FP) ONE (14:07)
[2021-08-20 02:07] LABS: SARS-CoV-2 NAA Not Detected (Not Detected)
== END 2021-08-18 14:45 | disposition home or self-care (01) ==
LOC: FER 12:58
DX: J20.9 Acute bronchitis, unspecified (principal)
CPT/HCPCS: 99283-25; C9803-CS; U0003; U0005

== ENCOUNTER 2022-09-29 10:06 | Emergency (ER) | payer OTHER ==
[2022-09-29 10:20] VITALS: BMI 29.7
[2022-09-29] MEDS ORDERED: SODIUM CHLORIDE 1,000 ML IV STA (11:06)
[2022-09-29] MEDS ORDERED: ACETAMINOPHEN 1000 MG/100 ML BAG IVPB ONE (11:12)
[2022-09-29] MEDS ORDERED: ACETAMINOPHEN INJECTION 100 ML IVPB ONE (12:05)
[2022-09-29 12:21] LABS: INR 1.62 (0.83-1.09); PROTHROMBIN TIME (PATIENT) 18.7 SEC (9.7-13.0)
[2022-09-29 12:24] LABS: ACTIVATED PTT 38.8 SECONDS (25.2-36.5)
[2022-09-29 12:28] LABS: ALBUMIN 4.1 g/dl (3.4-5.0); BILIRUBIN,TOTAL 0.8 mg/dl (0.2-1); CALCIUM 8.8 mg/dl (8.5-10); CREATININE 0.7 mg/dl (0.55-1.3); TOT PROT 6.5 g/dl (6.4-8.2)
[2022-09-29 12:29] LABS: HEMATOCRIT 39.8 % (32.4-45.2); HEMOGLOBIN 13.3 G/dL (10.7-15.3); MCH 30.5 pg (25.7-33.7); MCHC 33.4 g/dl (32.0-36.0); MEAN CELL VOLUME 91.2 fl (80-96); MEAN PLT VOLUME 7.9 fl (7.5-11.1); PLATELET COUNT 177.3 10^3/uL (134-434); RBC 4.36 10^6/uL (3.60-5.2); RDW 13.8 % (11.6-15.6); WHITE BLOOD COUNT 9.9 10^3/uL (4.0-10.8)
[2022-09-29 12:43] LABS: PLATELET ESTIMATE ADEQUATE
[2022-09-29 14:17] VITALS: BP 163/83; PULSE 78; RESP 16; TEMP 98.4
== END 2022-09-29 16:59 | disposition home or self-care (01) ==
LOC: FER 10:06
PROC: 3E0333Z Introduction of Anti-inflammatory into Peripheral Vein, Percutaneous Approach (ICD-10-PCS; principal; 2022-09-29)
PROC: 3E0337Z Introduction of Electrolytic and Water Balance Substance into Peripheral Vein, Percutaneous Approach (ICD-10-PCS; 2022-09-29)
DX: S09.90XA Unspecified injury of head, initial encounter (principal); R51.9 Headache, unspecified; W01.0XXA Fall on same level from slipping, tripping and stumbling without subsequent striking against object, initial encounter
CPT/HCPCS: 0241U-QW; 36415; 70450-TC; 71045-TC-FY; 72125-TC; 72128-TC; 72131-TC; 72170-TC-FY; 80053; 81003; 81015; 82962; 84443; 84484; 85027; 85610; 85730; 86850; 86900; 86901; 87086; 93005; 99285-25

== ENCOUNTER 2023-02-07 03:52 | Day surgery (SDC) | payer OTHER ==
[2023-02-02 17:32] VITALS: BMI 29.7
[~2023-02-07 03:52] MED LIST: ceFAZolin SODIUM 1 GM VIAL IVPB ONE
[2023-02-07 06:24] VITALS: RESP 18
[2023-02-07] MEDS ORDERED: PROPOFOL 20 ML ONE (07:41)
[2023-02-07] MEDS ORDERED: SEVOFLURANE 250 ML BTL ONE (07:41)
[2023-02-07] MEDS ORDERED: ONDANSETRON 4 MG/2 ML VIAL ONE (07:41)
[2023-02-07] MEDS ORDERED: ceFAZolin SODIUM 1 GM VIAL ONE (07:41)
[2023-02-07] MEDS ORDERED: LIDOCAINE HCL/PF 2% SDV 5ML VIAL ONE (07:41)
[2023-02-07] MEDS ORDERED: ceFAZolin SODIUM 1 GM VIAL IVPB ONE (07:55)
[2023-02-07] MEDS ORDERED: oxyCODONE HCL 5 MG TABLET PO PRN (08:21)
[2023-02-07] MEDS ORDERED: ONDANSETRON 4 MG/2 ML VIAL IVPUSH PRN (08:21)
[2023-02-07] MEDS ORDERED: ACETAMINOPHEN 1000 MG/100 ML BAG IVPB PRN (08:22)
[2023-02-07] MEDS ORDERED: LACTATED RINGERS SOLUTION 1,000 ML IV SCH (08:30)
[2023-02-07 09:28] VITALS: TEMP 97.8
[2023-02-07 10:23] VITALS: BP 142/63; PULSE 63
== END 2023-02-07 10:20 | disposition home or self-care (01) ==
LOC: JASU-SURG 03:52
PROVIDERS: ATTEND Urology
PROC: 0TUD8JZ Supplement Urethra with Synthetic Substitute, Via Natural or Artificial Opening Endoscopic (ICD-10-PCS; 2023-02-07)
PROC: 0TU Urinary System, Supplement (ICD-10-PCS; principal; 2023-02-07 07:30)
DX: N36.42 Intrinsic sphincter deficiency (ISD) (principal)
CPT/HCPCS: 51715; L8606; 94760; C1713

== ENCOUNTER 2023-08-04 11:25 | Emergency (ER) | payer OTHER ==
[2023-08-04 12:28] VITALS: BMI 29.7
[2023-08-04 13:43] LABS: BASO % 0.3 % (0-2.0); EOS % 0.1 % (0-4.5); HEMATOCRIT 38.6 % (32.4-45.2); LYMPH % 16.7 % (8-40); MCHC 33.7 g/dl (32.0-36.0); MEAN CELL VOLUME 89.1 fl (80-96); MEAN PLT VOLUME 7.2 fl (7.5-11.1); MONO % 12.1 % (3.8-10.2); NEUT % 70.8 % (42.8-82.8); PLATELET COUNT 147 10^3/uL (134-434); RBC 4.33 M/mm3 (3.60-5.2); RDW 13.9 % (11.6-15.6)
[2023-08-04 13:50] LABS: INR 1.38 (0.83-1.09); PROTHROMBIN TIME (PATIENT) 15.9 SEC (9.7-13.0)
[2023-08-04 13:52] LABS: ACTIVATED PTT 33.7 SECONDS (25.2-36.5)
[2023-08-04 14:08] LABS: POTASSIUM 3.5 mmol/L (3.5-5.1)
[2023-08-04 14:11] LABS: ALBUMIN 3.6 g/dl (3.4-5.0); CALCIUM 8.6 mg/dL (8.5-10.1)
[2023-08-04 14:16] LABS: TOT PROT 6.5 g/dl (6.4-8.2)
[2023-08-04 14:19] LABS: BILIRUBIN,TOTAL 0.5 mg/dL (0.2-1); CREATININE 0.6 mg/dL (0.55-1.3)
[2023-08-04] MEDS ORDERED: ACETAMINOPHEN 1000 MG/100 ML BAG IVPB ONE (15:10)
[2023-08-04] MEDS ORDERED: SODIUM CHLORIDE 0.9% 500 ML INFUS.BAG IV ONE (15:11)
[2023-08-04] MEDS ORDERED: ACETAMINOPHEN INJECTION 100 ML IVPB ONE (15:15)
[2023-08-04 16:48] VITALS: BP 144/78; PULSE 74; RESP 16; TEMP 97.6
== END 2023-08-04 17:41 | disposition home or self-care (01) ==
LOC: JER 11:25
PROC: 3E033NZ Introduction of Analgesics, Hypnotics, Sedatives into Peripheral Vein, Percutaneous Approach (ICD-10-PCS; principal; 2023-08-04)
DX: M54.50 Low back pain, unspecified (principal); R53.1 Weakness; R53.83 Other fatigue; R06.02 Shortness of breath; R50.9 Fever, unspecified; R09.81 Nasal congestion; R42 Dizziness and giddiness; U07.1 COVID-19; W19.XXXA Unspecified fall, initial encounter; Y92.002 Bathroom of unspecified non-institutional (private) residence as the place of occurrence of the external cause
CPT/HCPCS: 0241U-QW; 36415; 70450-TC; 71045-TC-FY; 72125-TC; 72131-TC; 72170-TC-FY; 80053; 82550; 82553; 82962; 83735; 84484; 85025; 85610; 85730; 93005; 93010; 99285-25